=== PATIENT | female | born 1975 | race Caucasian/White ===

== ENCOUNTER 2023-01-02 10:32 | Outpatient (REF) | payer MEDICAID, SELFPAY | END 2023-01-02 10:33 | disposition home or self-care (01) | LOC: HO.SH 10:32 | PROVIDERS: Visit Provider Nurse Practitioner Primary Care | DX: Z01.118 Encounter for examination of ears and hearing with other abnormal findings (principal); H90.3 Sensorineural hearing loss, bilateral | CPT/HCPCS: 92550; 92553; 92588 ==

== ENCOUNTER 2023-01-23 12:58 | Outpatient (REF) | payer MEDICAID, SELFPAY ==
--- NOTE | 2023-01-23 14:38 | MHC.AU.HA1 ---
Hearing Aid Evaluation Date of Visit: 01/23/23 Death Claim Clerk Used: Rebecca Biswas, [id number], Swazi Historical Information: Description of Hearing: Mild steeply sloping to profound sensorineural hearing loss, bilaterally. Summary: Obtaining a case history has been difficult due to inconsistencies in her history (see audio report). However, today Shital reported that speech does not sound clear and she needs to look at the speaker's face in order to utilize lip reading cues for full understanding. Pure-tone thresholds were confirmed today with good reliability. Shital is interested in pursuing hearing aids to help ease some of her communication difficulties. Per her vrmuvn-ad-njl, Rebecca, both Shital's brother and children comment on her hearing abilities and communication troubles. Rebecca believes Shital's unclear speech is related to her hearing loss; however, an exact timeline for her hearing loss and articulation concerns cannot be established. Shital opted for rechargeable tnfrmdxr-gb-sgo-ear hearing aids with custom c-shell ear mold. Hearing Aid Prescription: Based on the individual?s shared listening needs, communication environments, dexterity, desire for connectivity, and personal preferences, the following prescription for amplification has been made: Right ear: Make, Model, Color: Phonak Audeo L70-R Color: Beige Battery Size: Rechargeable Business Coordinator/Slim Tube: 0P Type of Earmold/Dome/CShell/SlimTip: c-shell Left ear: Left ear prescription to be same as Right Hearing Aid above: Make, Model, Color: Phonak Audeo L70-R Color: Beige Battery Size: Rechargeable Business Coordinator/Slim Tube: 0P Type of Earmold/Dome/CShell/SlimTip: c-shell Plan of Care: Patient wishes to purchase hearing aids as prescribed Action Taken/Action Needed: Earmold Impressions Taken without incident (in hold drawer). Medical Clearance to be requested from PCP/ENT. Hearing Instrument Fitting to be scheduled when materials arrive Primary Diagnosis: H90.3 Bilateral Sensorineural Hearing Loss Signature: Provider: Adelso Ho, [facility]
--- NOTE | 2023-01-23 15:16 | MHC.AU.MED ---
Medical Clearance for Hearing Instrumentation Date: 01/23/23 Patient Name: Shital Pena Date of : 1975 Primary Care Provider: Sheyla Mohamud MD We have seen your patient on 01/23/23 and have determined that they are a candidate for amplification (See accompanying report). Specifically, they would benefit from: Hearing aid use in both ears There is a statute that addresses Medical Evaluation Requirements prior to fitting a patient with a hearing aid. According to [place] statute 265 CMR:6.03(1), (a) General. Except as provided in 265 CMR 6.03(1)(b), a hearing aid consultant shall not sell a hearing aid unless the prospective user has presented to the hearing aid consultant a written statement signed by a licensed physician that states that the patient's hearing loss has been medically evaluated and the patient may be considered a candidate for a hearing aid. The medical evaluation must have taken place within the preceding six months. Please note: Due to the [place] Statute referenced above, we cannot accept a signature other than that of a licensed physician. PARTY DEMONSTRATOR and PA signatures cannot be accepted. I am in agreement with the above recommendation. There is no medical contraindication for hearing instrumentation. Physician Signature Date Physician Name (Printed)
--- NOTE | 2023-01-23 15:19 | MHC.AU.MED ---
Medical Clearance for Hearing Instrumentation Date: 01/23/23 Patient Name: Shital Pena Date of : 1975 Primary Care Provider: DIONE Gee We have seen your patient on 01/23/23 and have determined that they are a candidate for amplification (See accompanying report). Specifically, they would benefit from: Hearing aid use in the right ear Hearing aid use in the left ear Hearing aid use in both ears There is a statute that addresses Medical Evaluation Requirements prior to fitting a patient with a hearing aid. According to [place] statute 265 CMR:6.03(1), (a) General. Except as provided in 265 CMR 6.03(1)(b), a hearing screen coordinator shall not sell a hearing aid unless the prospective user has presented to the hearing screen coordinator a written statement signed by a licensed physician that states that the patient's hearing loss has been medically evaluated and the patient may be considered a candidate for a hearing aid. The medical evaluation must have taken place within the preceding six months. Please note: Due to the [place] Statute referenced above, we cannot accept a signature other than that of a licensed physician. INSTRUCTOR MILITARY SCIENCE and PA signatures cannot be accepted. I am in agreement with the above recommendation. There is no medical contraindication for hearing instrumentation. Physician Signature Date Physician Name (Printed)
== END 2023-01-23 12:59 | disposition home or self-care (01) ==
LOC: HO.HAP 12:58
PROVIDERS: Visit Provider Nurse Practitioner Primary Care
DX: H91.91 Unspecified hearing loss, right ear (principal); H90.3 Sensorineural hearing loss, bilateral
CPT/HCPCS: 92552; 92591; V5275

== ENCOUNTER 2023-02-21 15:34 | Outpatient (REF) | payer MEDICAID, SELFPAY ==
--- NOTE | 2023-02-24 11:05 | MHC.AU.HA2 ---
Hearing Instrument Fitting- Adult- Binaural Date of Visit: 02/21/23 Hearing Instruments Dispensed: Right Ear: Jacob, Model, Color, Serial Number: Ruth Smith [id number]-R SN: [id number] Color: Sand Beige Fender Repairer Repair Warranty: 05/13/2026 Fender Repairer Loss and Damage Warranty: 05/13/2026 [facility] Service Plan: 02/22/2024 Battery Size: Rechargeable Banking Specialist/Slim Tube: 0P Earmold/Dome/CShell/SlimTip: c-shell with canal lock SN: [id number] Warranty: 05/14/2023 Type of Wax Guard: CeruShield Left Ear: Jacob, Model, Color, Serial Number: Ruth Smith [id number]-[id number] SN: [id number] Color: Sand Beige Fender Repairer Repair Warranty: 05/13/2026 Fender Repairer Loss and Damage Warranty: 05/13/2026 [facility] Service Plan: 02/22/2024 Battery Size: Rechargeable Banking Specialist/Slim Tube: 0P Earmold/Dome/CShell/SlimTip: c-shell with canal lock SN: [id number] Warranty: 05/14/2023 Type of Wax Guard: CeruShield Disk Accessories/Assistive Technology: Cook Dessert SN: [id number] Summary of Fitting: Performed feedback analyzer and ran real ear measures. Had to decrease significantly from initial fit settings to match real ear targets. After real ear, Shital requested a slight increase in the volume. Turned up both hearing aids slightly. Shital reported that she was hearing better but could not elaborate on the specifics of the sound quality. Rebecca, Shital's ojwyfe-et-pco, will pay attention to how she is hearing and responding over the next few weeks. Discussed care, use, and rechargeability including manually turning on/off, cleaning, and changing wax guards. Practiced insertion and removal. Paired to cellphone but did not pair to [employer] michael at this time. Explained importance of daily, consistent use. Recommendations: A hearing instrument follow-up was scheduled. Diagnosis Code(s): Primary Diagnosis: H90.3 Bilateral Sensorineural Hearing Loss Signature: Provider: Adelso Ho, [facility]
== END 2023-02-21 15:35 | disposition home or self-care (01) ==
LOC: HO.HAP 15:34
PROVIDERS: Visit Provider Nurse Practitioner Primary Care
DX: Z46.1 Encounter for fitting and adjustment of hearing aid (principal); H90.3 Sensorineural hearing loss, bilateral
CPT/HCPCS: V5011; V5020; V5160; V5261; V5264

== ENCOUNTER 2023-03-13 10:46 | Outpatient (REF) | payer MEDICAID, SELFPAY | END 2023-03-13 10:47 | disposition home or self-care (01) | LOC: HO.HAP 10:46 | PROVIDERS: Visit Provider Nurse Practitioner Primary Care | DX: Z13.89 Encounter for screening for other disorder (principal) ==

== ENCOUNTER 2023-03-31 11:10 | Outpatient (REF) | payer MEDICAID, SELFPAY ==
[2023-03-31 13:30] LABS: MANUAL DIFF FLAG NO
[2023-03-31 13:44] LABS: Basophils Percent Auto 0.5 % (0-2); Eosinophils Absolute Auto 0.1 X10*3/uL (0.0-0.4); Eosinophils Percent Auto 1.7 % (0-4); Hematocrit 39.3 % (37.0-47.0); Imm Gran Abs Auto 0.03 X10*3/uL (0.00-0.03); Imm Gran Pct Auto 0.4 % (0.0-0.4); Lymphocytes Absolute Auto 2.8 X10*3/uL (1.2-4.9); Lymphocytes Percent Auto 33.3 % (20-40); Mean Corpuscular HGB Conc 30.5 g/dl (31.0-35.0); Mean Corpuscular Hemoglobin 24.2 pg (27.0-33.0); Mean Corpuscular Volume 79.2 fL (80.0-98.0); Mean Platelet Volume 9.9 fL (9.4-12.3); Monocytes Absolute Auto 0.7 X10*3/uL (0.1-1.2); Monocytes Percent Auto 8.6 % (2-11); Neutrophils Absolute Auto 4.6 x10*3/uL (2.0-8.3); Neutrophils Percent Auto 55.5 % (45-73); Platelet Count 351 X10*3/uL (160-400); Red Blood Count 4.96 X10*6/uL (4.20-5.50); White Blood Count 8.3 X10*3/uL (4.8-10.8)
[2023-03-31 14:03] LABS: Cholesterol 227 mg/dL (<200); HDL Cholesterol 53 mg/dL (>40); LDL Cholesterol Calculated 126 mg/dL (<100); Triglycerides 243 mg/dL (<150)
== END 2023-03-31 11:11 | disposition home or self-care (01) ==
LOC: HO.HHCL 11:10
PROVIDERS: Visit Provider Nurse Practitioner Family
DX: I10 Essential (primary) hypertension (principal); E78.5 Hyperlipidemia, unspecified
CPT/HCPCS: 36415; 80061; 85025

== ENCOUNTER 2023-05-14 09:05 | Outpatient (REF) | payer MEDICAID, SELFPAY ==
--- NOTE | ~2023-05-14 | MM_ITS ---
EXAMINATION: MM SCREENING DIGITAL BREAST TOMOSYNTHESIS, BILATERAL CLINICAL INFORMATION: Asymptomatic patient. Screening. COMPARISON: Mammography: This is a baseline study. TECHNIQUE: Digital breast tomosynthesis is performed in both the craniocaudal and mediolateral oblique views along with computer-aided detection (CAD). Synthesized 2D images are generated from the tomosynthesis. FINDINGS: There are scattered areas of fibroglandular density (ACR BI-RADS breast composition Category b). There are no significant masses, abnormal calcifications, or other abnormalities. There is a coarsely calcifying mass in the upper-outer quadrant of the left breast. This is congressional representative of a benign, involuting fibroadenoma. MM/MM tomosynthesis screening BI IMPRESSION: No mammographic evidence of malignancy. ASSESSMENT: BI-RADS BI-RADS 2 - Benign Findings RECOMMENDATION: Routine annual mammography screening. 1 year F/U This examination should not preclude the clinical evaluation of a suspicious palpable abnormality. This patient's information was entered into a reminder system with a target due date for their next mammogram.
== END 2023-05-14 09:06 | disposition home or self-care (01) ==
LOC: HO.MAMMO 09:05
PROVIDERS: PCP Nurse Practitioner Family; Visit Provider Nurse Practitioner Family
DX: Z12.31 Encounter for screening mammogram for malignant neoplasm of breast (principal)
CPT/HCPCS: 77063; 77067

== ENCOUNTER → 2023-05-14 09:30 | Outpatient (BNV) | payer MEDICAID, SELFPAY | PROVIDERS: PCP Nurse Practitioner Family; Visit Provider Radiology Diagnostic Radiology | DX: Z12.31 Encounter for screening mammogram for malignant neoplasm of breast (principal) | CPT/HCPCS: 77063; 77067 ==

== ENCOUNTER 2023-09-12 09:00 | Outpatient (REF) | payer SELFPAY | END 2023-09-12 09:01 | disposition home or self-care (01) | LOC: HO.HAP 09:00 | PROVIDERS: Visit Provider Nurse Practitioner Family | DX: Z46.1 Encounter for fitting and adjustment of hearing aid (principal); H90.3 Sensorineural hearing loss, bilateral | CPT/HCPCS: V5267 ==

== ENCOUNTER 2023-09-15 10:55 | Outpatient (REF) | payer SELFPAY ==
[2023-09-15 12:58] LABS: HBS Num1 0.17 mIU/mL (0-7.99); ~HepC Num1 0.11 S/CO (0.00-0.79); ~Hepatitis B Surface Antibody NONREACTIVE (Nonreactive); ~Hepatitis C Antibody Nonreactive (Nonreactive)
== END 2023-09-15 10:56 | disposition home or self-care (01) ==
LOC: HO.HHCL 10:55
PROVIDERS: Visit Provider Nurse Practitioner Family
DX: Z00.00 Encounter for general adult medical examination without abnormal findings (principal)
CPT/HCPCS: 36415; 86706; 86803

== ENCOUNTER 2023-10-13 20:00 | Outpatient (REF) | payer MEDICAID, SELFPAY ==
[2023-10-17 22:47] LABS: HPV mRNA E6/E7 rflx Not Detected (Not Detected)
== END 2023-10-13 20:01 | disposition home or self-care (01) ==
LOC: HO.HHCLNP 20:00
PROVIDERS: Visit Provider Advanced Practice Midwife
DX: Z12.4 Encounter for screening for malignant neoplasm of cervix (principal); Z11.51 Encounter for screening for human papillomavirus (HPV)
CPT/HCPCS: 87624; 88142

== ENCOUNTER 2024-04-20 10:32 | Outpatient (REF) | payer MEDICAID, SELFPAY ==
[2024-04-20 12:02] LABS: Alanine Aminotransferase 21 U/L (0-31); Albumin Level 4.5 g/dL (3.5-5.0); Alkaline Phosphatase 129 U/L (39-117); Anion Gap 11 (12-20); Aspartate Amino Transferase 20 U/L (5-31); Bilirubin Total 0.3 mg/dL (0.0-1.0); Blood Urea Nitrogen 14 mg/dL (9-16); Calcium 10.1 mg/dL (8.4-10.2); Carbon Dioxide 31 mmol/L (22-29); Chloride 104 mmol/L (96-108); Cholesterol 188 mg/dL (<200); Estimated Glomerular Filt Rate > 60; Glucose Random 101 mg/dL (60-115); HDL Cholesterol 57 mg/dL (>40); LDL Cholesterol Calculated 106 mg/dL (<100); Potassium 3.1 mmol/L (3.3-5.1); Sodium 143 mmol/L (135-145); Total Protein 8.2 g/dL (6.5-8.0); Triglycerides 128 mg/dL (<150)
== END 2024-04-20 10:33 | disposition home or self-care (01) ==
LOC: HO.HHCL 10:32
PROVIDERS: Visit Provider Registered Nurse
DX: R73.03 Prediabetes (principal)
CPT/HCPCS: 36415; 80053; 80061

== ENCOUNTER 2024-04-28 08:34 | Outpatient (REF) | payer MEDICAID, SELFPAY ==
[2024-04-28 12:01] LABS: Alanine Aminotransferase 17 U/L (0-31); Albumin Level 4.4 g/dL (3.5-5.0); Alkaline Phosphatase 118 U/L (39-117); Anion Gap 10 (12-20); Aspartate Amino Transferase 20 U/L (5-31); Bilirubin Total 0.2 mg/dL (0.0-1.0); Blood Urea Nitrogen 16 mg/dL (9-16); Calcium 10.1 mg/dL (8.4-10.2); Carbon Dioxide 33 mmol/L (22-29); Chloride 101 mmol/L (96-108); Estimated Glomerular Filt Rate > 60; Glucose Random 98 mg/dL (60-115); Potassium 3.2 mmol/L (3.3-5.1); Sodium 141 mmol/L (135-145); Total Protein 8.1 g/dL (6.5-8.0)
[2024-04-28 12:10] LABS: Gamma Glutamyl Transpeptidase 77 U/L (7-33)
== END 2024-04-28 08:35 | disposition home or self-care (01) ==
LOC: HO.HHCL 08:34
PROVIDERS: Visit Provider Registered Nurse
DX: R74.8 Abnormal levels of other serum enzymes (principal); E87.5 Hyperkalemia
CPT/HCPCS: 36415; 80053; 82977

== ENCOUNTER 2024-09-09 13:04 | Outpatient (REF) | payer SELFPAY | END 2024-09-09 13:05 | disposition home or self-care (01) | LOC: HO.HAP 13:04 | PROVIDERS: Visit Provider Nurse Practitioner Family | DX: Z46.1 Encounter for fitting and adjustment of hearing aid (principal); H90.3 Sensorineural hearing loss, bilateral | CPT/HCPCS: V5267 ==

== ENCOUNTER 2024-11-02 12:01 | Outpatient (REF) | payer MEDICAID, SELFPAY ==
[2024-11-02 13:43] LABS: Estimated Average Glucose 128 mg/dL; Hemoglobin A1c % 6.1 % (<6.0)
[2024-11-02 14:04] LABS: Alanine Aminotransferase 26 U/L (0-31); Albumin Level 4.6 g/dL (3.5-5.0); Alkaline Phosphatase 148 U/L (39-117); Anion Gap 13 (12-20); Aspartate Amino Transferase 24 U/L (5-31); Bilirubin Total 0.3 mg/dL (0.0-1.0); Blood Urea Nitrogen 13 mg/dL (9-16); Calcium 10.2 mg/dL (8.4-10.2); Carbon Dioxide 28 mmol/L (22-29); Chloride 105 mmol/L (96-108); Estimated Glomerular Filt Rate > 60; Glucose Random 80 mg/dL (60-115); Potassium 3.7 mmol/L (3.3-5.1); Sodium 142 mmol/L (135-145); Total Protein 8.2 g/dL (6.5-8.0)
== END 2024-11-02 12:02 | disposition home or self-care (01) ==
LOC: HO.HHCL 12:01
PROVIDERS: Visit Provider Registered Nurse
DX: I10 Essential (primary) hypertension (principal); R73.03 Prediabetes
CPT/HCPCS: 36415; 80053; 83036

== ENCOUNTER 2024-12-03 08:34 | Outpatient (REF) | payer MEDICAID, SELFPAY ==
--- OUTSIDE RECORDS SUMMARY | 2024-12-03 08:44 | XMS_ITS | Encounter Summary ---
Author Organization [employer] Address [address] [place] [address] Care Team Providers Care Plc Technician Name Role Phone Astrid Fatoumata [facility] Primary Care Provider [phone] Encounter Details Date Type Department Care Team ([facility] st Contact Info) Description 04/21/2024 Orders Only [facility] [address] [place], [place] [phone] Astrid [facility] [address] [place] [address] Elevated alkaline phosphatase level (Primary Dx); Serum potassium elevated Social History Tobacco Use Types Packs/Day Years Used Date Smoking Tobacco: Never Passive Smoke Exposure: Never Smokeless Tobacco: Never Alcohol Use Standard Drinks/Week Comments Never 0 (1 standard drink = 0.6 oz pur e alcohol) Depression Answer Date Recorded Patient Health Questionnaire-9 Score 0 10/04/2022 Housing Stability Answer Date Recorded What is your housing situation today? I have housing today, but I am worried about losing housing in the future 04/19/[address] you li ve. Do you have problems with any of the following? None of the above 04/19/2024 Food Insecurity Answer Date Recorded Within the past 12 months, y ou worried that your food would run out before you got money to buy more: Never True 04/19/2024 Within the past 12 months,th e food you bought just didn't last and you didn't have enough money to get more: Never True 04/2024 Transportation Answer Date Recorded In the past 12 months, has l ack of transportation kept you from medical appts, meetings, work or from getting things needed for daily living? No 04/19/2024 Utilities Answer Date Recorded In the past 12 months, has t he electric, gas, oil or water company threatened to shut off services in your home? No 04/19/2024 Depression Answer Date Recorded Patient Health Questionnaire-2 Score 4 09/15/2023 Internet Access Answer Date Recorded Internet Access Q1 Yes 04/19/2024 Internet Access Q2 Not on file 04/19/2024 Comments No Sex and Gender Information Value Date Recorded Sex Assigned at Female 06/19/2022 11:56 AM EST Legal Sex Female 11:55 AM EST Gender Identity Female 06/19/2022 11:56 AM EST Sexual Orientation Straight 06/19/2022 11 :59 AM EST documented as of this encounter Plan of Treatment Upcoming Encounters Date Type Department Care Team (Late st Contact Info) Description 12/13/2024 9:00 AM EDT Office Visit [facility] [address] [place] [address] [facility] [address] [place] [address] documented as of this encounter Procedures Procedure Name Priority Date/Time Associated Diagnosis Comments GGT Routine 04/28/2024 8:35 AM EST Elevated alkaline phosphatase level COMPREHENSIVE METABOLIC PANEL Routine 04/28/2024 8:35 AM EST Serum potassium elevated documented in this encounter Results * (ABNORMAL) Gamma Glutamyl Transferase (GGT) (04/28/2024 8:35 AM EST) Gamma Glutamyl Transpeptidase 77(H) 7 - 33 U/L [facility] Blood Venous blood specimen / Unknown 04/28/2024 8:35 AM EST 04/28/2024 11:22 AM EST [facility] LAB BLOOD ORDERABLES Final Re sult [facility] [address] [place] [address] [phone] * (ABNORMAL) Comprehensive Metabolic Panel (04/28/2024 8:35 AM EST) Sodium 141 135 - 145 mmol/L [facility] Potassium 3.2(L) 3.3 - 5.1 mmol/L [facility] Chloride 101 96 - 108 mmol/L [facility] Carbon Dioxide 33(H) 22 - 29 mmol/L [facility] Anion Gap 10(L) 12 - 20 [facility] Urea Nitrogen (BUN) 16 9 - 16 mg/dL [facility] Creatinine, Serum 0.87 0.5 - 1.4 mg/dL [facility] Estimated Glomerular Filt Rate >60 [facility] Comment:Chronic Kidney Disea se: Estimated GFR < 60 mL/min/1.86c8Towqlr Kidney Disease: Estimated GFR < 15 mL/min/1.73m2 Glucose 98 60 - 115 mg/dL [facility] Calcium 10.1 8.4 - 10.2 mg/dL [facility] Bilirubin, Total 0.2 0.0 - 1.0 mg/dL [facility] Aspartate Amino Transferase 20 5 - 31 U/L [facility] Alanine Aminotransferase 17 0 - 31 U/L [facility] Total Protein 8.1(H) 6.5 - 8.0 g/dL [facility] Albumin Level 4.4 3.5 - 5.0 g/dL [facility] Alkaline Phosphatase 118(H) 39 - 117 U/L [facility] Blood Venous blood specimen / Unknown 04/28/2024 8:35 AM EST 04/28/2024 11:22 AM EST [facility] LAB BLOOD ORDERABLES Final Re sult [facility] [address] [place] [phone] documented in this encounter Visit Diagnoses Diagnosis Elevated alkaline phosphatase level- Primary Serum potassium elevated Hyperpotassemia documented in this encounter Additional Health Concerns Assessment Noted Time PHQ-9 Depression Total Score: 0 10/05/19 23 8:58 AM EDT documented as of this encounter Care Teams Plc Technician Relationship Specialty Start Date End Date Fatoumata Resendiz FNP [address] [place] [id number] PCP - General Family Medicine 02/10/24 documented as of this encounter
[2024-12-03 11:20] LABS: MANUAL DIFF FLAG NO
[2024-12-03 11:24] LABS: Appearance Urine Clear; Color Urine Yellow; Glucose Urine UA Negative (Negative); Leukocyte Esterase Urine Trace (Negative); Nitrite Urine Negative (Negative); PH 7.5 (5.0-9.0); Specific Gravity - Urine <= 1.005 (1.005-1.025); UMIC TRIGGER UA YES; Urine Blood Moderate (2+) (Negative); Urine Ketones Negative (Negative); Urine Protein 30 (1+) mg/dL (Neg-Trace)
[2024-12-03 11:27] LABS: Basophils Percent Auto 0.5 % (0-2); Eosinophils Absolute Auto 0.1 X10*3/uL (0.0-0.4); Eosinophils Percent Auto 1.8 % (0-4); Hematocrit 38.5 % (37.0-47.0); Hemoglobin 11.7 g/dl (12.0-16.0); Imm Gran Abs Auto 0.02 X10*3/uL (0.00-0.03); Imm Gran Pct Auto 0.3 % (0.0-0.4); Lymphocytes Absolute Auto 2.8 X10*3/uL (1.2-4.9); Lymphocytes Percent Auto 34.5 % (20-40); Mean Corpuscular HGB Conc 30.4 g/dl (31.0-35.0); Mean Corpuscular Hemoglobin 24.1 pg (27.0-33.0); Mean Corpuscular Volume 79.4 fL (80.0-98.0); Mean Platelet Volume 10.4 fL (9.4-12.3); Monocytes Absolute Auto 0.6 X10*3/uL (0.1-1.2); Neutrophils Absolute Auto 4.5 x10*3/uL (2.0-8.3); Neutrophils Percent Auto 55.9 % (45-73); Platelet Count 319 X10*3/uL (160-400); Red Blood Count 4.85 X10*6/uL (4.20-5.50); Red Cell Distribution Width 17.9 % (11.0-16.0)
[2024-12-03 11:31] LABS: Bacteria Urine Trace (None Seen); Hyaline Casts Urine 0-2 /LPF (0-2); RBC Urine >20 /HPF (0-2)
[2024-12-03 11:52] LABS: Creatinine Urine 40.16 mg/dL; Microalbum/Creatinine Ratio Ur 532.8 ug/mg cr (<30)
[2024-12-03 12:04] LABS: Erythrocyte Sedimentation Rate 44 MM/HR (0-20)
[2024-12-07 22:03] LABS: Prot Elec - Albumin 3.9 g/dL (3.8-4.8); Prot Elec - Alpha1 0.3 g/dL (0.2-0.3); Prot Elec - Beta 1 0.5 g/dL (0.4-0.6); Prot Elec - Beta 2 0.5 g/dL (0.2-0.5); Prot Elec - Gamma 1.1 g/dL (0.8-1.7); Prot Elec - Total Protein 7.3 g/dL (6.1-8.1)
== END 2024-12-03 08:35 | disposition home or self-care (01) ==
LOC: HO.HHCL 08:34
PROVIDERS: PCP Nurse Practitioner Family; Visit Provider Registered Nurse
DX: R77.9 Abnormality of plasma protein, unspecified (principal)
CPT/HCPCS: 36415; 81001; 82043; 82570; 84165; 85025; 85652

== ENCOUNTER 2025-01-10 14:31 | Outpatient (AMB) | payer MEDICAID, SELFPAY ==
--- NOTE | 2025-01-10 14:33 | HO.NEPHOV ---
Vital Signs 01/10/25 14:38 Height 4 ft 9 in Weight 170 lb 8 oz BMI 36.9 BP 131/80 Blood Pressure Location Lt brachial Position Sitting Pulse 79 Pulse Source Pulse Oximeter Pulse Oximetry (%) 99 Oxygen Delivery Method Room Air Intake Visit Reasons: ENP: Persistent Proteinuria/ Conf Paper Stripper Required: No Emulsification Operator: Emulsification Operator Present Accompanied by: Friend Allergies No Known Allergies Allergy (Verified 01/10/25 14:40) Medication List - Last Reconciled 01/10/25 by Jose Miguel Cartwright MD amlodipine 10 mg PO DAILY ferrous gluconate 324 mg PO DAILY metformin 500 mg PO DAILY olmesartan 5 mg PO DAILY simvastatin 20 mg PO DAILY Do you need a note to return to daycare/school/sports/work: No HPI Comments Details: Shital is a 50-year-old woman with history of borderline diabetes mellitus who was found to have non nephrotic range proteinuria and microscopic hematuria by urinalysis. Currently she is on Benicar 5 mg a day. She has been referred for further evaluation of proteinuria. The recent serum electrophoresis did not reveal any monoclonal proteins She was accompanied by caregiver. No history of gross hematuria. No edema. No nausea or vomiting. No urinary symptoms no polyuria polydipsia. No fever no rash. [facility] Medical History Periodontal disease Gingival bleeding Dental calculus Mild depression Iron deficiency Hearing loss in right ear Hyperlipidemia Essential hypertension Surgical History H/O tubal ligation Previous section Family History Mother Cancer Father Alzheimer disease Review of Systems Const Denies anorexia, Denies fever(s) and Denies weakness Eyes Denies blurry vision Card Denies no additional complaints and Denies dyspnea Resp Reports no additional complaints, Reports cough and Denies dyspnea GI Denies melena and Denies diarrhea Denies hematuria Musc Denies tingling Skin/Breast Denies rash Neuro Denies focal weakness, Denies tingling, Denies tremor(s) and Denies weakness Physical Exam Vital Signs: Last Vital Signs Pulse 79 01/10/25 14:38 BP 131/80 01/10/25 14:38 Pulse Ox 99 01/10/25 14:38 Oxygen Delivery Method Room Air 08/04/25 14:38 BMI result Body Mass Index 36.9 Const General: comfortable Nutritional Appearance: well nourished Orientation/consciousness: patient oriented x3 HEENT Head: No normal to inspection Mouth: moist mucous membranes Neck Neck: Yes supple and Yes no JVD Resp Auscultation: clear to auscultation bilaterally, no rales and rub present Cardio Jugular venous distension: no JVD Palpation: no palpable S3 and no palpable S4 Heart sounds: no rubs GI Palpation (GI): Soft to palpation and nontender Percussion: No Fluid wave present General: Yes no CVA tenderness Back/Spine/Pelvis Back: no CVA tenderness Skin General skin exam: no rashes or lesions noted Neuro General: patient oriented x3 Extrem General: Yes no pedal edema and No clubbing Results Reviewed Nephrology Results: Hgb, (12.0-16.0) 11.7 g/dl L 12/03/24 WBC, (4.8-10.8) 8.0 X10*3/uL 12/03/24 Plt Count, (160-400) 319 X10*3/uL 12/03/24 Sodium, (135-145) 142 mmol/L 11/02/24 Potassium, (3.3-5.1) 3.7 mmol/L 11/02/24 Chloride, (96-108) 105 mmol/L 11/02/24 Carbon Dioxide, (22-29) 28 mmol/L 11/02/24 BUN, (9-16) 13 mg/dL 11/02/24 Creatinine, (0.5-1.4) 0.68 mg/dL 11/02/24 Calcium, (8.4-10.2) 10.2 mg/dL 11/02/24 Urine Protein, (Neg-Trace) 30 (1+) mg/dL H 12/03/24 Urine Creatinine 40.16 mg/dL 12/03/24 Assessment & Plan Assessment & Plan (1) Hematuria: Code(s): R31.9 - Hematuria, unspecified Category: Medical (2) Proteinuria: Code(s): R80.9 - Proteinuria, unspecified Category: Medical Plan 50-year-old woman with obesity hypertension and borderline diabetes mellitus with proteinuria and microscopic hematuria. Workup initiated for serum. Complete serological workup. Obtain ANCAs and anti GBM. Check serum immunofixation Recheck urinalysis. Check CT scan abdominal pelvis to screen for renal and extrarenal causes of microhematuria. Further workup will be based on the outcome of the above investigations. In the meantime continue with Benicar for renal protection Maintain blood pressure less than 130/80. Continue to avoid nephrotoxic toxic agents including NSAIDs. She will benefit from weight loss. Stay on low-sodium diet and increase p.o. fluid intake. She returned to the office in the next few weeks. Orders: Orders Total Protein Urine Random Today R31.9 - Hematuria, unspecified, R80.9 - Proteinuria, unspecified Immunofixation Pnl, Serum Today R31.9 - Hematuria, unspecified, R80.9 - Proteinuria, unspecified Neutrophil Cytoplasma Ab Today R31.9 - Hematuria, unspecified, R80.9 - Proteinuria, unspecified CT abdomen pelvis w IV con Today R31.9 - Hematuria, unspecified Comprehensive Met. Panel Today R31.9 - Hematuria, unspecified, R80.9 - Proteinuria, unspecified Complete Blood Count Auto Diff Today R31.9 - Hematuria, unspecified, R80.9 - Proteinuria, unspecified Creatinine Urine Today R31.9 - Hematuria, unspecified, R80.9 - Proteinuria, unspecified UA and rflx microscopic Today R31.9 - Hematuria, unspecified, R80.9 - Proteinuria, unspecified Anti Glomerular Basement Memb Today R31.9 - Hematuria, unspecified, R80.9 - Proteinuria, unspecified Coding Level of Care Code New Pt Level 4 (25545) Diagnoses Hematuria R31.9 Proteinuria R80.9
--- OUTSIDE RECORDS SUMMARY | 2025-01-10 14:34 | XMS_ITS | Encounter Summary ---
Author Organization [employer] Address [address] [place] [address] Care Team Providers Care Clinical Case Manager Name Role Phone Astrid Fatoumata [facility] Primary Care Provider [phone] Encounter Details Date Type Department Care Team ([facility] st Contact Info) Description 04/21/2024 Orders Only [facility] [address] [place], [place] [phone] Astrid [facility] [address] [place] [address] Elevated alkaline phosphatase level (Primary Dx); Serum [...] Care Team (Late st Contact Info) Description 01/13/2025 10:00 AM EDT Clinical Support [address] [address] documented as of this encounter Procedures Procedure Name Priority Date/Time Associated Diagnosis Comments GGT Routine 04/28/2024 8:35 AM EST Elevated alkaline phosphatase level COMPREHENSIVE METABOLIC PANEL Routine 04/28/2024 8:35 AM EST Serum potassium elevated documented in this encounter Results * (ABNORMAL) Gamma Glutamyl Transferase (GGT) (04/28/2024 8:35 AM EST) Gamma Glutamyl Transpeptidase 77(H) 7 - 33 U/L [facility] Blood Venous blood specimen / Unknown 04/28/2024 8:35 AM EST 04/28/2024 11:22 AM EST [facility] LAB BLOOD ORDERABLES Final Re sult [facility] [address] [place] [phone] * (ABNORMAL) Comprehensive Metabolic Panel (04/28/2024 8:35 AM EST) Sodium 141 135 - 145 mmol/L [facility] Potassium 3.2(L) 3.3 - 5.1 mmol/L [facility] Chloride 101 96 - 108 mmol/L [facility] Carbon Dioxide 33(H) 22 - 29 mmol/L [facility] Anion Gap 10(L) 12 - 20 [facility] Urea Nitrogen (BUN) 16 9 - 16 mg/dL [facility] Creatinine, Serum 0.87 0.5 - 1.4 mg/dL [facility] Estimated Glomerular Filt Rate >60 [facility] Comment:Chronic Kidney Disea se: Estimated GFR < 60 mL/min/1.04z5Upinmv Kidney Disease: Estimated GFR < 15 mL/min/1.73m2 Glucose 98 60 - 115 mg/dL [facility] Calcium 10.1 8.4 - 10.2 mg/dL [facility] Bilirubin, Total 0.2 0.0 - 1.0 mg/dL [facility] Aspartate Amino Transferase 20 5 - 31 U/L [facility] Alanine Aminotransferase 17 0 - 31 U/L [facility] Total Protein 8.1(H) 6.5 - 8.0 g/dL [facility] Albumin Level 4.4 3.5 - 5.0 g/dL [facility] Alkaline Phosphatase 118(H) 39 - 117 U/L [facility] Blood Venous blood specimen / Unknown 04/28/2024 8:35 AM EST 04/28/2024 11:22 AM EST [facility] LAB BLOOD ORDERABLES Final Re sult [facility] [address] [place] [address] [phone] documented in this encounter Visit Diagnoses Diagnosis Elevated alkaline phosphatase level- Primary Serum potassium elevated Hyperpotassemia documented in this encounter Additional Health Concerns Assessment Noted Time PHQ-9 Depression Total Score: 0 10/05/19 8:58 AM EDT documented as of this encounter Care Teams Clinical Case Manager Relationship Specialty Start Date End Date PetersburgFatoumata ramirez FNP [address] [place] [address] PCP - General Family Medicine 02/10/24 documented as of this encounter
[2025-01-10 14:38] VITALS: BP 131/80; PULSE 79; O2SAT 99; BMI 36.9
== END 2025-01-10 14:53 | disposition home or self-care (01) ==
LOC: HO.HKA 14:32
PROVIDERS: PCP Nurse Practitioner Family; Visit Provider Internal Medicine Hypertension Specialist
DX: R31.9 Hematuria, unspecified (principal); R80.9 Proteinuria, unspecified
CPT/HCPCS: 99204

== ENCOUNTER → 2025-01-10 14:31 | Outpatient (BNVA) | payer MEDICAID, SELFPAY | PROVIDERS: PCP Nurse Practitioner Family; Visit Provider Internal Medicine Hypertension Specialist | DX: R73.03 Prediabetes (principal); R80.9 Proteinuria, unspecified; R31.9 Hematuria, unspecified | CPT/HCPCS: 99202 ==

== ENCOUNTER 2025-01-21 11:49 | Outpatient (REF) | payer MEDICAID, SELFPAY ==
--- NOTE | ~2025-01-21 | US_ITS ---
CLINICAL HISTORY: 49 y.o F with persistent alkphos elevation. R p hepatobiliary dysfunction US abdomen complete with duplex and color Doppler Comparison: None Findings: The visualized pancreas, aorta, and inferior vena cava are unremarkable. Liver normal size and mildly echogenic throughout. Right lobe 14.2 cm length. No focal hepatic masses. Common duct 3.0 mm diameter. Physiologic distention of the gallbladder. No gallstones. Probable gallbladder sludge. No gallbladder wall thickening. No pericholecystic fluid. No sonographic Marie sign. Main portal vein antegrade. Right kidney normal size, 10.7 cm in length. Normal cortical width and echotexture. No solid or cystic renal masses. Nonobstructing caliceal stones midpole measuring 14 and 13 mm. No hydronephrosis. Left kidney normal, 10.0 cm in length. Normal cortical width and echotexture. No solid or cystic renal masses. Spleen measures 6.4 cm. No splenic masses. No ascites. No lymphadenopathy. Impression: 1. Echogenic liver reflecting mild diffuse hepatic steatosis or diffuse hepatocellular disease. No focal hepatic lesions. 2. Probable gallbladder sludge no gallstones or evidence of cholelithiasis. 3. Nephrolithiasis on the right without evidence of obstructive uropathy. Correlate with CT of the abdomen and pelvis. This document has been electronically signed by: Flaquito Abdi MD on 01/22/2025 09:06:12
--- OUTSIDE RECORDS SUMMARY | 2025-01-21 11:51 | XMS_ITS | Encounter Summary ---
Author Organization [employer] Address [address] [facility] [address] [place] [address] Care Team Providers Care Wildland Firefighter Name Role Phone Astrid Fatoumata [facility] Primary Care Provider [phone] Encounter Details Date Type Department Care Team ([facility] st Contact Info) Description 04/21/2024 Orders Only [facility] [address], [place] [phone] Astrid [facility] [address] [place] [address] Elevated alkaline phosphatase level (Primary Dx); Serum [...] as of this encounter Plan of Treatment Not on file documented as of this encounter Procedures Procedure Name Priority Date/Time Associated Diagnosis Comments GGT Routine 04/28/2024 8:35 AM EST Elevated alkaline phosphatase level COMPREHENSIVE METABOLIC PANEL Routine 04/28/2024 8:35 AM EST Serum potassium elevated documented in this encounter Results * (ABNORMAL) Gamma Glutamyl Transferase (GGT) (04/28/2024 8:35 AM EST) Gamma Glutamyl Transpeptidase 77(H) 7 - 33 U/L [facility] Blood Venous blood specimen / Unknown 04/28/2024 8:35 AM EST 04/28/2024 11:22 AM EST [facility] LAB BLOOD ORDERABLES Final Re sult [facility] [address] [place] [address] [phone] * (ABNORMAL) Comprehensive Metabolic Panel (04/28/2024 8:35 AM EST) Sodium 141 135 - 145 mmol/L [facility] Potassium 3.2(L) 3.3 - 5.1 mmol/L [facility] Chloride 101 96 - 108 mmol/L [facility] Carbon Dioxide 33(H) 22 - 29 mmol/L [facility] Anion Gap 10(L) 12 - 20 [facility] Urea Nitrogen (BUN) 16 9 - 16 mg/dL [facility] Creatinine, Serum 0.87 0.5 - 1.4 mg/dL [facility] Estimated Glomerular Filt Rate >60 [facility] Comment:Chronic Kidney Disea se: Estimated GFR < 60 mL/min/[id number] Kidney Disease: Estimated GFR < 15 mL/min/1.73m2 Glucose 98 60 - 115 mg/dL [facility] Calcium 10.1 8.4 - 10.2 mg/dL [facility] Bilirubin, Total 0.2 0.0 - 1.0 mg/dL [facility] Aspartate Amino Transferase 20 5 - 31 U/L [facility] Alanine Aminotransferase 17 0 - 31 U/L [facility] Total Protein 8.1(H) 6.5 - 8.0 g/dL [facility] Albumin Level 4.4 3.5 - 5.0 g/dL [facility] Alkaline Phosphatase 118(H) 39 - 117 U/L [facility] Blood Venous blood specimen / Unknown 04/28/2024 8:35 AM EST 04/28/2024 11:22 AM EST [facility] LAB BLOOD ORDERABLES Final Re sult [facility] [address] [place] [phone] documented in this encounter Visit Diagnoses Diagnosis Elevated alkaline phosphatase level- Primary Serum potassium elevated Hyperpotassemia documented in this encounter Additional Health Concerns Assessment Noted Time PHQ-9 Depression Total Score: 0 10/05/19 23 8:58 AM EDT documented as of this encounter Care Teams Wildland Firefighter Relationship Specialty Start Date End Date Fatoumata Resendiz FNP [address] [place] [address] PCP - General Family Medicine 02/10/24 documented as of this encounter
== END 2025-01-21 11:50 | disposition home or self-care (01) ==
LOC: HO.US 11:49
PROVIDERS: PCP Nurse Practitioner Family; Visit Provider Registered Nurse
DX: R74.8 Abnormal levels of other serum enzymes (principal); R31.9 Hematuria, unspecified
CPT/HCPCS: 76700

== ENCOUNTER → 2025-01-21 11:51 | Outpatient (BNV) | payer MEDICAID, SELFPAY | PROVIDERS: PCP Nurse Practitioner Family; Visit Provider Radiology Diagnostic Radiology | DX: R74.8 Abnormal levels of other serum enzymes (principal); N20.0 Calculus of kidney | CPT/HCPCS: 76700 ==

== ENCOUNTER 2025-02-24 09:57 | Outpatient (AMB) | payer MEDICAID, SELFPAY ==
[2025-02-24 10:01] VITALS: BP 132/78; PULSE 80; O2SAT 97; BMI 37.2
--- NOTE | 2025-02-24 10:01 | HO.NEPHOV_ITS ---
Vital Signs 02/24/25 10:01 Height 4 ft 9 in Weight 172 lb BMI 37.2 BP 132/78 Blood Pressure Location Lt brachial Position Sitting Pulse 80 Pulse Source Pulse Oximeter Pulse Oximetry (%) 97 Oxygen Delivery Method Room Air Intake Visit Reasons: FU Alcohol Law Enforcement Agent Required: No Alcohol Law Enforcement Agent Services: Alcohol Law Enforcement Agent Offered & Declined (Sister in law will translate ) Accompanied by: sister adiel Allergies No Known Allergies Allergy (Verified 02/24/25 10:03) Medication List - Last Reconciled 02/24/25 by Jose Miguel Cartwright MD amlodipine 10 mg PO DAILY ferrous gluconate 324 mg PO DAILY metformin 500 mg PO DAILY olmesartan 5 mg PO DAILY simvastatin 20 mg PO DAILY HPI Comments Details: Shital is a 50-year-old woman with history of borderline diabetes mellitus who was found to have non nephrotic range proteinuria and microscopic hematuria by urinalysis. Currently she is on Benicar 5 mg a day. She has been referred for further evaluation of proteinuria. The recent serum electrophoresis did not reveal any monoclonal proteins She was accompanied by caregiver. No history of gross hematuria. No edema. No nausea or vomiting. No urinary symptoms no polyuria polydipsia. No fever no rash. 02/24/25 The patient is a 50-year-old female presenting with a follow-up on proteinuria. Proteinuria is associated with pre diabetes,HTN and Obesity ; renal function is stable. No swelling is present, h/o micro Hematuria is noted, work up in progress Social History: - High sugar intake, including candy and sweets - Drinks a lot of juice and soda, limited water intake Diagnostic Results: - Imaging: Normal kidneys, no obstruction noted [facility] Medical History Periodontal disease Gingival bleeding Dental calculus Mild depression Iron deficiency Hearing loss in right ear Hyperlipidemia Essential hypertension Surgical History H/O tubal ligation Previous section Family History Mother Cancer Father Alzheimer disease Physical Exam Vital Signs: Last Vital Signs Pulse 80 02/24/25 10:01 BP 132/78 02/24/25 10:01 Pulse Ox 97 02/24/25 10:01 Oxygen Delivery Method Room Air 02/24/25 10:01 BMI result Body Mass Index 37.2 Comfortable Neck supple no JVD. Lungs entry equal no rales. Heart S1-S2 heard no gallop or rub. Abdomen soft nontender. Neuro alert awake oriented. No asterixis. Extremities no edema. Results Reviewed Nephrology Results: Hgb, (12.0-16.0) 11.7 g/dl L 12/03/24 WBC, (4.8-10.8) 8.0 X10*3/uL 12/03/24 Plt Count, (160-400) 319 X10*3/uL 12/03/24 Sodium, (135-145) 142 mmol/L 11/02/24 Potassium, (3.3-5.1) 3.7 mmol/L 11/02/24 Chloride, (96-108) 105 mmol/L 11/02/24 Carbon Dioxide, (22-29) 28 mmol/L 11/02/24 BUN, (9-16) 13 mg/dL 11/02/24 Creatinine, (0.5-1.4) 0.68 mg/dL 11/02/24 Calcium, (8.4-10.2) 10.2 mg/dL 11/02/24 Urine Protein, (Neg-Trace) 30 (1+) mg/dL H 12/03/24 Urine Creatinine 40.16 mg/dL 12/03/24 Assessment & Plan Assessment & Plan (1) Hematuria: Code(s): R31.9 - Hematuria, unspecified Category: Medical (2) Proteinuria: Code(s): R80.9 - Proteinuria, unspecified Category: Medical Plan 50-year-old woman with obesity hypertension and borderline diabetes mellitus with proteinuria and microscopic hematuria. Complete serological workup in progress . Reordered ANCAs and anti GBM. Check CT scan abdominal pelvis to screen for renal and extrarenal causes of microhematuria. ( ordered- not done yet) USG showed non obstructing nephrolithiasis Further workup will be based on the outcome of the above investigations. In the meantime continue with Benicar for renal protection Maintain blood pressure less than 130/80. Continue to avoid nephrotoxic toxic agents including NSAIDs. She will benefit from weight loss. Stay on low-sodium diet and increase p.o. fluid intake. . Orders: Orders VICTORINO Reflex Titer and Pattern Today R31.9 - Hematuria, unspecified, R80.9 - Proteinuria, unspecified Anti Glomerular Basement Memb Today R31.9 - Hematuria, unspecified, R80.9 - Proteinuria, unspecified Complement C3 Today R31.9 - Hematuria, unspecified, R80.9 - Proteinuria, un specified Complement C4 Today R31.9 - Hematuria, unspecified, R80.9 - Proteinuria, unspecified Creatinine Urine Today R31.9 - Hematuria, unspecified, R80.9 - Proteinuria, unspecified Total Protein Urine Random Today R31.9 - Hematuria, unspecified, R80.9 - Proteinuria, unspecified UA and rflx microscopic Today R31.9 - Hematuria, unspecified, R80.9 - Proteinuria, unspecified Neutrophil Cytoplasma Ab Today R31.9 - Hematuria, unspecified, R80.9 - Proteinuria, unspecified Proteinase 3 PR3 Antibodies Today R31.9 - Hematuria, unspecified, R80.9 - Proteinuria, unspecified Basic Metabolic Panel Today R31.9 - Hematuria, unspecified, R80.9 - Proteinuria, unspecified Hemoglobin A1c Today R31.9 - Hematuria, unspecified, R80.9 - Proteinuria, unspecified Coding Level of Care Code Est Pt Level 4 (64750) Diagnoses Hematuria R31.9 Proteinuria R80.9
== END 2025-02-24 10:18 | disposition home or self-care (01) ==
LOC: HO.HKA 09:58
PROVIDERS: PCP Nurse Practitioner Family; Visit Provider Internal Medicine Hypertension Specialist
DX: R31.9 Hematuria, unspecified (principal); R80.9 Proteinuria, unspecified
CPT/HCPCS: 99214

== ENCOUNTER 2025-02-24 09:57 | Outpatient (REF) | payer MEDICAID, SELFPAY ==
[2025-02-24 11:00] LABS: Hematocrit 39.7 % (37.0-47.0); Hemoglobin 12.0 g/dl (12.0-16.0); Imm Gran Abs Auto 0.02 X10*3/uL (0.00-0.03); Imm Gran Pct Auto 0.2 % (0.0-0.4); Lymphocytes Absolute Auto 2.9 X10*3/uL (1.2-4.9); MANUAL DIFF FLAG SCAN; Mean Corpuscular HGB Conc 30.2 g/dl (31.0-35.0); Mean Corpuscular Hemoglobin 24.0 pg (27.0-33.0); Mean Corpuscular Volume 79.2 fL (80.0-98.0); NRBC Abs Auto 0.000 X10*3/uL (0.0-0.012); NRBC Pct Auto 0.0 /100WBC (0.0-0.2); PLT CLUMP 1; Red Blood Count 5.01 X10*6/uL (4.20-5.50); SCAN SMEAR FLAG 1
[2025-02-24 11:14] LABS: Total Hemoglobin (HGBA1C) 3176.7550 umol/L
[2025-02-24 11:18] LABS: Platelet Count 290 X10*3/uL (160-400); White Blood Count 8.4 X10*3/uL (4.8-10.8)
[2025-02-24 11:36] LABS: Appearance Urine Clear; Glucose Urine UA Negative (Negative); PH 8.5 (5.0-9.0); Specific Gravity - Urine 1.010 (1.005-1.025); UMIC TRIGGER UA YES
[2025-02-24 11:47] LABS: Alanine Aminotransferase 17 U/L (0-31); Albumin Level 4.7 g/dL (3.5-5.0); Alkaline Phosphatase 127 U/L (39-117); Anion Gap 15 (12-20); Aspartate Amino Transferase 22 U/L (5-31); Blood Urea Nitrogen 9 mg/dL (9-16); Calcium 10.3 mg/dL (8.4-10.2); Carbon Dioxide 28 mmol/L (22-29); Chloride 106 mmol/L (96-108); Estimated Glomerular Filt Rate > 60; Potassium 3.7 mmol/L (3.3-5.1); Sodium 145 mmol/L (135-145); Total Protein 8.4 g/dL (6.5-8.0)
[2025-02-24 12:19] LABS: Total Protein Urine Random 42 mg/dL (<12)
--- OUTSIDE RECORDS SUMMARY | 2025-02-24 12:23 | XMS_ITS | Encounter Summary ---
Author Organization [employer] Address [address] [facility] [address] [place] [address] Care Team Providers Care Cyber Incident Responder Name Role Phone Astrid Fatoumata [facility] Primary Care Provider [phone] Encounter Details Date Type Department Care Team ([facility] st Contact Info) Description 04/21/2024 Orders Only [facility] [address] [place], [place] [phone] Gile [facility] [address] [place] [address] Elevated alkaline phosphatase level (Primary Dx); Serum [...] Care Team (Late st Contact Info) Description 03/21/2025 11:00 AM EDT Office Visit [facility] [address] [place] [address] Shaun Morelandaris [address] [place] [address] 03/28/2025 11:00 AM EDT Office Visit [facility] [address] [place] [address] Veronica Moreland [address] [place] [address] documented as of this encounter Procedures Procedure Name Priority Date/Time Associated Diagnosis Comments SLIDE REVIEW Routine 02/24/2025 10:44 AM EDT Elevated alkaline phosphatase level CBC WITH AUTO DIFFERENTIAL Routine 02/24/2025 10:44 AM EDT Elevated alkaline phosphatase level HEMOGLOBIN A1C Routine 02/24/2025 10:44 AM EDT Elevated alkaline phosphatase level COMPREHENSIVE METABOLIC PANEL Routine 02/24/2025 10:44 AM EDT Elevated alkaline phosphatase level URINALYSIS, COMPLETE Routine 02/24/2025 10:32 AM EDT Elevated alkaline phosphatase level GGT Routine 04/28/2024 8:35 AM EST Elevated alkaline phosphatase level COMPREHENSIVE METABOLIC PANEL Routine 04/28/2024 8:35 AM EST Serum potassium elevated documented in this encounter Results * (ABNORMAL) Comprehensive Metabolic Panel (02/24/2025 10:44 AM EDT) Sodium 145 135 - 145 mmol/L [facility] Potassium 3.7 3.3 - 5.1 mmol/L [facility] Chloride 106 96 - 108 mmol/L [facility] Carbon Dioxide 28 22 - 29 mmol/L [facility] Anion Gap 15 12 - 20 [facility] Urea Nitrogen (BUN) 9 9 - 16 mg/dL [facility] Creatinine, Serum 0.74 0.5 - 1.4 mg/dL [facility] Estimated Glomerular Filt Rate >60 [facility] Comment:Chronic Kidney Disea se: Estimated GFR < 60 mL/min/[id number] Kidney Disease: Estimated GFR < 15 mL/min/1.73m2 Glucose 85 60 - 115 mg/dL [facility] Calcium 10.3(H) 8.4 - 10.2 mg/dL [facility] Bilirubin, Total 0.2 0.0 - 1.0 mg/dL [facility] Aspartate Amino Transferase 22 5 - 31 U/L [facility] Alanine Aminotransferase 17 0 - 31 U/L [facility] Total Protein 8.4(H) 6.5 - 8.0 g/dL [facility] Albumin Level 4.7 3.5 - 5.0 g/dL [facility] Alkaline Phosphatase 127(H) 39 - 117 U/L [facility] 02/24/2025 10:4 4 AM EDT 02/24/2025 10:44 AM EDT us Generic External Data Provider LAB BLOOD ORDERAB LES Final Result [facility] [address] [place] [address] [phone] * Slide Review (02/24/2025 10:44 AM EDT) Slide Review VERIFIED [facility] 02/24/2025 10:4 4 AM EDT 02/24/2025 10:44 AM EDT us Generic External Data Provider LAB BLOOD ORDERAB LES Final Result [facility] [address] [place] [phone] * (ABNORMAL) CBC auto differential (02/24/2025 10:44 AM EDT) White Blood Count 8.4 4.8 - 10.8 X10*3/uL [facility] Red Blood Count 5.01 4.20 - 5.50 X10*6/uL [facility] Hemoglobin 12.0 12.0 - 16.0 g/dl [facility] Hematocrit 39.7 37.0 - 47.0 % [facility] Mean Corpuscular Volume 79.2(L) 80.0 - 98.0 fL [facility] Mean Corpuscular Hemoglobin 24.0(L) 27.0 - 33.0 pg [facility] Mean Corpuscular HGB Conc 30.2(L) 31.0 - 35.0 g/dl [facility] Red Cell Distribution Width 16.0 11.0 - 16.0 % [facility] Platelet Count 290 160 - 400 X10*3/uL [facility] Mean Platelet Volume 10.4 9.4 - 12.3 fL [facility] Neutrophils Percent Auto 54.3 45 - 73 % [facility] Imm Gran Pct Auto 0.2 0.0 - 0.4 % [facility] Lymphocytes Percent Auto 35.2 20 - 40 % [facility] Monocytes Percent Auto 8.1 2 - 11 % [facility] Eosinophils Percent Auto 1.7 0 - 4 % [facility] Basophils Percent Auto 0.5 0 - 2 % [facility] NRBC Pct Auto 0.0 0.0 - 0.2 /100WBC [facility] Neutrophils Absolute Auto 4.5 2.0 - 8.3 x10*3/uL [facility] Imm Gran Abs Auto 0.02 0.00 - 0.03 X10*3/uL [facility] Lymphocytes Absolute Auto 2.9 1.2 - 4.9 X10*3/uL [facility] Monocytes Absolute Auto 0.7 0.1 - 1.2 X10*3/uL [facility] Eosinophils Absolute Auto 0.1 0.0 - 0.4 X10*3/uL [facility] Basophils Absolute Auto 0.0 0.0 - 0.2 X10*3/uL [facility] NRBC Abs Auto 0.000 0.0 - 0.012 X10*3/uL [facility] 02/24/2025 10:4 4 AM EDT 02/24/2025 10:44 AM EDT us Generic External Data Provider LAB BLOOD ORDERAB LES Edited Result - Final [facility] [address] [place] [phone] * (ABNORMAL) Hemoglobin A1c (02/24/2025 10:44 AM EDT) Hemoglobin A1c 6.4(H) <6.0 % [facility] Comment:Hemoglobin A1C Refer ence Range Adults: 4.8 - 6.0 % Non diabetic: < 6.0 % Goal: < 7.0 %Additional Action Suggested: > 8.0 %Note: Hemoglobin A1c results are invalid for patients with abnormal amounts of HbF. Blood transfusions may impact the HbA1c concentration in the patient sample. Estimated Average Glucose 137 mg/dL [facility] Comment:eAG = Estimated ave rage glucose which is %A1C expressed asaverage glucose, using the formula of the I0P-HqtbbxcAxvhgfn Glucose study (ADAG), Diabetes Care, Vol.31,#8,Jan. 2007 02/24/2025 10:4 4 AM EDT 02/24/2025 10:44 AM EDT us Generic External Data Provider LAB BLOOD ORDERAB LES Final Result Performing Organization Address [facility] Co de Phone Number [facility] [address] [place] [address] [phone] * (ABNORMAL) Urinalysis Complete (02/24/2025 10:32 AM EDT) Color Urine Yellow [facility] Appearance Urine Clear [facility] PH 8.5 5.0 - 9.0 [facility] Glucose Urine UA Negative Negative mg/dL [facility] Urine Blood Trace(A) Negative [facility] Specific [place] - Urine 1.010 1.005 - 1.025 [facility] Urine Protein 30 (1+)(A) Neg-Trace mg/dL [facility] Urine Ketones Negative Negative mg/dL [facility] Nitrite Urine Negative Negative [facility] Leukocyte Esterase Urine Negative Negative [facility] RBC Urine 6-10(A) 0 - 2 /HPF [facility] Urine WBC 0-5 0 - 5 /HPF [facility] Urine Squamous Epithelial Cell 3-5 0 - 2 /HPF [facility] Urine Bacteria 1+ None Seen [facility] Hyaline Casts, Urine 0-2 0 - 2 /LPF [facility] 02/24/2025 10:3 2 AM EDT 02/24/2025 11:06 AM EDT us Generic External Data Provider LAB URINE ORDERAB LES Final Result Performing Organization Address [facility]/ZIP Co de Phone Number [facility] [address] [place] [address] [phone] * (ABNORMAL) Gamma Glutamyl Transferase (GGT) (04/28/2024 8:35 AM EST) Gamma Glutamyl Transpeptidase 77(H) 7 - 33 U/L [facility] Blood Venous blood specimen / Unknown 04/28/2024 8:35 AM EST 04/28/2024 11:22 AM EST [facility] LAB BLOOD ORDERABLES Final Re sult [facility] [address] [place] [phone] * (ABNORMAL) Comprehensive Metabolic Panel (04/28/2024 8:35 AM EST) Sodium 141 135 - 145 mmol/L [facility] Potassium 3.2(L) 3.3 - 5.1 mmol/L [facility] Chloride 101 96 - 108 mmol/L [facility] Carbon Dioxide 33(H) 22 - 29 mmol/L [facility] Anion Gap 10(L) 12 - 20 [facility] Urea Nitrogen (BUN) 16 9 - 16 mg/dL [facility] Creatinine, Serum 0.87 0.5 - 1.4 mg/dL [facility] Estimated Glomerular Filt Rate >60 [facility] Comment:Chronic Kidney Disea se: Estimated GFR < 60 mL/min/[id number] Kidney Disease: Estimated GFR < 15 mL/min/1.73m2 Glucose 98 60 - 115 mg/dL [facility] Calcium 10.1 8.4 - 10.2 mg/dL [facility] Bilirubin, Total 0.2 0.0 - 1.0 mg/dL [facility] Aspartate Amino Transferase 20 5 - 31 U/L [facility] Alanine Aminotransferase 17 0 - 31 U/L [facility] Total Protein 8.1(H) 6.5 - 8.0 g/dL [facility] Albumin Level 4.4 3.5 - 5.0 g/dL [facility] Alkaline Phosphatase 118(H) 39 - 117 U/L [facility] Blood Venous blood specimen / Unknown 04/28/2024 8:35 AM EST 04/28/2024 11:22 AM EST [facility] LAB BLOOD ORDERABLES Final Re sult [facility] [address] [place] [address] [phone] documented in this encounter Visit Diagnoses Diagnosis Elevated alkaline phosphatase level- Primary Serum potassium elevated Hyperpotassemia documented in this encounter Additional Health Concerns Assessment Noted Time PHQ-9 Depression Total Score: 0 10/05/19 23 8:58 AM EDT documented as of this encounter Care Teams Cyber Incident Responder Relationship Specialty Start Date End Date GileFatoumata FNP [address] [place] [phone] PCP - General Family Medicine 02/10/24 documented as of this encounter
--- OUTSIDE RECORDS SUMMARY | 2025-02-24 12:23 | XMS_ITS | Encounter Summary ---
Author Organization [employer] Address [address] [place] [address] 7 [place] [address] Care Team Providers Care Crossing Gateman Name Role Phone Nikia Arzate Primary Care Provider [phone] Fatoumata Resendiz [facility] Primary Care Provider [phone] Encounter Details Date Type Department Care Team (Late Contact Info) Description 2023 Orders Only [facility] [address] [place] [address] Nikia Arzate FNP [address] [place] [address] Essential hypertension (Primary Dx) Social History Tobacco Use Types Packs/Day Years Used Date Smoking Tobacco: Never Passive Smoke Exposure: Never Smokeless Tobacco: Never Alcohol Use Standard Drinks/Week Comments Never 0 (1 standard drink = 0.6 oz pur e alcohol) Depression Answer Date Recorded Patient Health Questionnaire-9 Score 0 10/04/2022 Depression Answer Date Recorded Patient Health Questionnaire-2 Score 0 10/04/2022 Comments Unknown Sex and Gender Information Value Date Recorded Sex Assigned at Female 06/19/2022 11:56 AM EST Legal Sex Female 11:55 AM EST Gender Identity Female 06/19/2022 11:56 AM EST Sexual Orientation Straight 06/19/2022 11 :59 AM EST documented as of this encounter Plan of Treatment Upcoming Encounters Date Type Department Care Team (Late Contact Info) Description 03/21/2025 11:00 AM EDT Office Visit [facility] AD[facility] [address] [place] [address] Veronica Moreland [address] [place] [address] 03/28/2025 11:00 AM EDT Office Visit [facility] [address] [place], [place] [phone] Veronica Moreland [address] [place] [address] documented as of this encounter Visit Diagnoses Diagnosis Essential hypertension- Primary Unspecified essential hypertension documented in this encounter Additional Health Concerns Assessment Noted Time PHQ-9 Depression Total Score: 0 10/05/19 8:58 AM EDT documented as of this encounter Care Teams Crossing Gateman Relationship Specialty Start Date End Date Nikia Arzate FNP [address] [place] [address] PCP - General Family Medicine 10/08/22 02/09/24 AstridFatoumata ramirez FNP [address] [place] [address] PCP - General Family Medicine 02/10/24 documented as of this encounter
--- OUTSIDE RECORDS SUMMARY | 2025-02-24 12:23 | XMS_ITS | Encounter Summary ---
Author Organization [employer] Address [address] [place] [address] [address] [place] [address] Care Team Providers Care Ultra Sound Technician Name Role Phone Nikia Arzate Primary Care Provider [phone] AstridFatoumata [facility] Primary Care Provider Encounter Details Date Type Department Care Team ([facility] st Contact Info) Description 10/08/2022 Orders Only [facility] [address] [place] [address] Nikia Arzate FNP [address] [place] [address] Low mean corpuscular volume (MCV) (Primary Dx) Social History Tobacco Use Types [...] Orientation Straight 06/19/2022 11 :59 AM EST COVID-19 Exposure Response Date Recorded In the last 10 days, have yo u been in contact with someone who was confirmed or suspected to have Coronavirus/COVID-19? No / Unsure 10/04/2022 8:31 AM EDT documented as of this encounter Plan of Treatment Upcoming Encounters Date Type Department Care Team (Late st Contact Info) Description 03/21/2025 11:00 AM EDT Office Visit [facility] [address] [facility] [place] [address] Veronica Moreland [address] [facility] [place] [address] 03/28/2025 11:00 AM EDT Office Visit [facility] [address] [facility] [place] [address] Veronica Moreland [address] [facility] [place] [address] documented as of this encounter Procedures Procedure Name Priority Date/Time Associated Diagnosis Comments IRON, TIBC AND FERRITIN PANEL Routine 10/14/2022 8:48 AM EDT Low mean corpuscular volume (MCV) documented in this encounter Results * (ABNORMAL) Iron, TIBC And Ferritin Panel (10/14/2022 8:48 AM EDT) Iron, Total 52 40 - 190 mcg/dL [facility] [place] [facility] Iron Binding Capacity 466(H) 250 - 450 mcg/dL (calc) Loaded [facility] [place] [facility] % Saturation 11(L) 16 - 45 % (calc) [facility] [place] [facility] Ferritin 13(L) 16 - 232 ng/mL [facility] [place] [facility] Blood Venous blood specimen / Unknown 10/14/2022 8:48 AM EDT 10/14/2022 8:49 AM EDT Narrative [facility] - 10/14/2022 9:24 PM EDT FASTING:NO FASTING: NO us Nikia Arzate [employer] LAB BLOOD ORDERABLES Final Resu lt [facility] [address], [place] [address] [facility] [place] [facility] [address] [place] [address] documented in this encounter Visit Diagnoses Diagnosis Low mean corpuscular volume (MCV)- Primary documented in this encounter Additional Health Concerns Assessment Noted Time PHQ-9 Depression Total Score: 0 04/28/20 23 8:58 AM EDT documented as of this encounter Care Teams Ultra Sound Technician Relationship Specialty Start Date End Date Nikia Arzate FNP [address] [place] [address] PCP - General Family Medicine 10/08/22 02/09/24 Fatoumata Resendiz FNP [address] [place] [address] PCP - General Family Medicine 02/10/24 documented as of this encounter
--- OUTSIDE RECORDS SUMMARY | 2025-02-24 12:23 | XMS_ITS | Clinical Summary ---
Author Organization [employer] Address [address] [facility] [address] [place] [address] Care Team Providers Care Night Worker Name Role Phone Fatoumata Resendiz ARCHITECTURAL MANAGER Primary Care Provider [phone] Allergies No known active allergies Medications * This document contains information received from the source organization and may not represent a complete record from that organization. Blood Pressure kitIndications:Ess ential hypertension 1 kit in the morning. 1 kit 3 Active Blood Pressure Monitoring (Omron 3 Series BP Monitor) device TEST BLOOD SUGAR IN THE MORNING 3 Active Spacer/Aero-Holdin g Chambers (OptiChamber Muna) misc 1 each every 4 (four) hours if needed (asthma). 1 each 4 Active ferrous gluconate (Fergon) 324 (38 Fe) MG tablet TAKE 1 TABLET BY MOUTH EVERY DAY WITH BREAKFAST 90 tablet 3 4 Active Ventolin HFA 108 (90 Base) MCG/ACT inhaler INHALE 2 PUFFS BY MOUTH EVERY 4 HOURS NEEDED FOR WHEEZING OR SHORTNESS OF BREATH 18 g 1 5 Active amLODIPine (Norvasc) 10 MG tabletIndications: Essential hypertension Take 1 tablet (10 mg) by mouth Once per day. 90 tablet 3 5 09/27/19 26 Active simvastatin (Zocor) 20 MG tabletIndications: Hyperlipidemia, unspecified hyperlipidemia type TAKE 1 TABLET BY MOUTH DAILY 90 tablet 3 5 Active olmesartan (Benicar) 5 MG tabletIndications: Essential hypertension Take 1 tablet (5 mg) by mouth Once per day. 30 tablet 11 10/19/19 Active metFORMIN XR (Glucophage-XR) 500 MG 24 hr tabletIndications: Pre-diabetes Take 1 tablet (500 mg) by mouth with evening meal. Do not crush, chew, or split. 30 tablet 11 12/14/19 26 Active Active Problems Problem Noted Date Diagnosed Date Dental calculus 11/11/2024 Gingival bleeding 11/11/2024 Periodontal disease 11/11/2024 Missing teeth, acquired 11/11/2024 Mild depression 08/18/2024 Iron deficiency 10/23/2022 Pre-diabetes 10/23/2022 Essential hypertension 06/19/2022 Hyperlipidemia 06/19/2022 Hearing loss of right ear 06/19/2022 Resolved Problems Problem Noted Date Diagnosed Date Resolved Date Tipped teeth 05/23/2023 10/18/2024 Dental calculus 05/23/2023 10/18/2024 Gingival bleeding 05/23/2023 10/18/2024 Encounters Date Type Department Care Team Description 02/18/[address] [facility] [address] [place] [address] Veronica Moreland 01/13/2025 10:00 AM EDT Clinical Support [facility] [address] [place] [phone] [place] Palacios RN Encounter for immunization 01/13/2025 Travel 12/13/2024 9:00 AM EDT Office Visit [facility] [address] [place] [address] Fatoumata Resendiz FNP Persistent proteinuria (Primary Dx); Pre-diabetes; Essential hypertension; Encounter for immunization 12/13/2024 Travel 12/09/[address] [facility] [address] [place] [address] Fatoumata Resendiz FNP chart prep 12/02/2024 Telephone [facility] [address] [place] [address] Fatoumata Resendiz FNP message from pcp from Last 3 Months Immunizations Immunization Administration Dates Next Due Hep B, adult 01/13/2025 HepB-CpG 12/13/2024 Influenza injectable quadrivalent preservative f ree 06/19/2022 Influenza, seasonal, injectable, preservative fr ee 03/17/2024 Pfizer Covid-19 Vaccine 12+ 04/19/2024 Pneumococcal Conjugate PCV 20 10/18/2024 Tdap 09/15/2023 Family History Medical History Relation Name Comments Alzheimer's disease Father Cancer Mother Relation Name Status Comments Father Mother Social History Tobacco Use Types Packs/Day Years Used Date Smoking Tobacco: Never Passive Smoke Exposure: Never Smokeless Tobacco: Never Tobacco Cessation:Counseling Given: Not Answered Alcohol Use Standard Drinks/Week Comments Never 0 (1 standard drink = 0.6 oz pur e alcohol) Depression Answer Date Recorded Patient Health Questionnaire-9 Score 0 12/13/2024 Patient Health Questionnaire-9 Score 0 12/13/2024 Last PHQ-9: Questionnaire Data Not on file 0 12/13/2024 Housing Stability Answer Date Recorded What is [...] Date Recorded Patient Health Questionnaire-2 Score 0 12/13/2024 Internet Access Answer Date Recorded Internet Access Q1 Yes 04/19/2024 Internet Access Q2 Not on file 04/19/2024 Comments No Sex and Gender Information Value Date Recorded Sex Assigned at Female 06/19/2022 11:56 AM EST Legal Sex Female 11:55 AM EST Gender Identity Female 06/19/2022 11:56 AM EST Sexual Orientation Straight 06/19/2022 11 :59 AM EST Last Filed Vital Signs Vital Sign Reading Time Taken Comments Blood Pressure 136/82 12/13/2024 9:06 AM EDT Pulse 78 12/13/2024 9:06 AM EDT Temperature 36.6 C (97.9 F) 12/13/2024 9:06 AM EDT Respiratory Rate 18 12/13/2024 9:06 AM EDT Oxygen Saturation 100% 10/18/2024 8:50 AM EDT Inhaled Oxygen Concentration - - Weight 78.3 kg (172 lb 9.6 oz) 12/13/2024 9:06 A M EDT Height 144.8 cm (4' 9 ) 12/13/2024 9:06 AM EDT Body Mass Index 37.35 12/13/2024 9:06 AM EDT Plan of Treatment Upcoming Encounters Date Type Department Care Team (Late st Contact Info) Description 03/21/2025 11:00 AM EDT Office Visit [facility] [address] [place] [address] [facility] [address] [place] [address] 03/28/2025 11:00 AM EDT Office Visit [facility] [address] [place] [address] [facility] [address] [place] [address] Health Maintenance Due Date Last Done Comments CT Colonography 1975 Colonoscopy 1975 Colorectal Cancer Screening 1975 FIT DNA/Cologuard 1975 FIT 1975 FOBT 1975 HIV Screening 1975 Sigmoidoscopy 1975 Family Planning (PISQ) 1989 Zoster Vaccines (1 of 2) 01/07/2024 Dental X-Ray: Bitewings 05/24/2024 05/23/20 23 (Patient Refused) Influenza Vaccine (#1) 2025 03/17/2024, 2022 SDOH Screening 04/19/2025 04/19/2024 Dental Oral Exam 05/13/2025 11/10/2024, , 07/09/2022 Dental Prophylaxis 05/13/2025 11/10/2024, 0 12/18/2023, 05/23/2023 Mammogram 05/14/2025 05/14/2023 Diabetes: Hemoglobin A1C 05/26/2025 025, 11/02/2024, 04/19/2024, Additional history exists Hepatitis B Vaccines (3 of 3 - 19+ 3-dose series) 06/15/2025 01/13/2025, 12/13/2024 Disability Screening 10/18/2025 10/18/2024 Alcohol/Substance Use Screening 12/13/2025 12/13/2024 Depression Screening 12/13/2025 12/13/2024, 12/14/19 Tobacco Screening 12/13/2025 12/13/2024 Dental X-Ray: Full Mouth 11/12/2027 11/10/2024, 06/11 Cervical Cancer Screening 10/12/2028 HPV/Cotest 10/12/2028 10/13/2023 Pap Smear 10/12/2028 10/13/2023 Lipid Panel 04/20/2029 04/20/2024, 03/10, 10/04/2022 DTaP/Tdap/Td Vaccines (2 - Td or Tdap) 09/14/2033 09/15/2023 RSV Patients and Patients Aged 60 years or older (1 - 1-dose 75+ series) 2049 Hepatitis C Screening Completed 09/15/2023 COVID-19 Vaccine Completed 04/19/2024 Pneumococcal Vaccine: 50+ Years Completed 10/18/2024 HIB Vaccines Aged Out No longer eligi ble based on patient's age to complete this topic HPV Vaccines Aged Out No longer eligi ble based on patient's age to complete this topic Hepatitis A Vaccines Aged Out No long er eligible based on patient's age to complete this topic IPV Vaccines Aged Out No longer eligi ble based on patient's age to complete this topic Meningococcal B Vaccine Aged Out No l onger eligible based on patient's age to complete this topic Meningococcal Vaccine Aged Out No stacie berenice eligible based on patient's age to complete this topic RSV under 20 months Aged Out No longe r eligible based on patient's age to complete this topic Rotavirus Vaccines Aged Out No longer eligible based on patient's age to complete this topic Procedures Procedure Name Priority Date/Time Associated Diagnosis Comments COMPREHENSIVE METABOLIC PANEL Routine 02/24/2025 10:44 AM EDT Elevated alkaline phosphatase level SLIDE REVIEW Routine 02/24/2025 10:44 AM EDT Elevated alkaline phosphatase level CBC WITH AUTO DIFFERENTIAL Routine 02/24/2025 10:44 AM EDT Elevated alkaline phosphatase level HEMOGLOBIN A1C Routine 02/24/2025 10:44 AM EDT Elevated alkaline phosphatase level URINALYSIS, COMPLETE Routine 02/24/2025 10:32 AM EDT Elevated alkaline phosphatase level US ABDOMEN COMPLETE Routine 01/22/2025 9 :06 AM EDT Elevated serum alkaline phosphatase level POCT GLUCOSE Routine 12/13/2024 9:08 AM EDT Pre-diabetes SED RATE BY MODIFIED WESTERGREN Routine 12/03/2024 8:48 AM EDT Elevated serum protein level CBC WITH AUTO DIFFERENTIAL Routine 12/03/2024 8:48 AM EDT Elevated serum protein level ALBUMIN, RANDOM URINE W/CREATININE Routine 12/03/2024 8:48 AM EDT Elevated serum protein level URINALYSIS, COMPLETE Routine 12/03/2024 8:48 AM EDT Elevated serum protein level PROTEIN, TOTAL AND PROTEIN ELECTROPHORESIS Routine 12/03/2024 8:48 AM EDT Elevated serum protein level PROPHYLAXIS - ADULT Routine 11/10/2024 1 :00 PM EDT Dental calculus Gingival bleeding Periodontal disease PANORAMIC RADIOGRAPHIC IMAGE Routine 11/10/2024 1:00 PM EDT PERIODIC ORAL EVALUATION - ESTABLISHED PATIENT Routine 11/10/2024 1:00 PM EDT LIPID PANEL, STANDARD Routine 04/20/2024 10:35 AM EST Pre-diabetes HPV MRNA E6/E7 REFLEX TO HPV 16, 18/45 Routine 10/13/2023 11:13 AM EDT PAP SMEAR Routine 10/13/2023 11:13 AM EDT Cervical cancer screening HEPATITIS C AB W/REFL TO HCV RNA, QN, PCR Routine 09/15/2023 10:56 AM EDT Routine general medical examination at a health care facility BI MAMMOGRAM SCREENING TOMOSYNTHESIS BILATERAL Routine 05/14/2023 9:25 AM EST from Last 3 Months or Most Recently Relevant to Health Maintenance Results * Slide Review (02/24/2025 10:44 AM EDT) Slide Review VERIFIED [facility] 02/24/2025 10:4 4 AM EDT 02/24/2025 10:44 AM EDT us Generic External Data Provider LAB BLOOD ORDERAB LES Final Result [facility] [address] [place] [address] [phone] * (ABNORMAL) CBC auto differential (02/24/2025 10:44 AM EDT) Only the most recent of2 resultswithin the time period is included. White Blood Count 8.4 4.8 - 10.8 X10*3/uL [facility] Red Blood Count 5.01 4.20 - 5.50 X10*6/uL [facility] Hemoglobin 12.0 12.0 - 16.0 g/dl [facility] Hematocrit 39.7 37.0 - 47.0 % [facility] Mean Corpuscular Volume 79.2(L) 80.0 - 98.0 fL [facility] Mean Corpuscular Hemoglobin 24.0(L) 27.0 - 33.0 pg [facility] Mean Corpuscular HGB Conc 30.2(L) 31.0 - 35.0 g/dl [facility] Red Cell Distribution Width 16.0 11.0 - 16.0 % [facility] Platelet Count 290 160 - 400 X10*3/uL [facility] Mean Platelet Volume 10.4 9.4 - 12.3 fL [facility] Neutrophils Percent Auto 54.3 45 - 73 % [facility] Imm Gran Pct Auto 0.2 0.0 - 0.4 % [facility] Lymphocytes Percent Auto 35.2 20 - 40 % [facility] Monocytes Percent Auto 8.1 2 - 11 % [facility] Eosinophils Percent Auto 1.7 0 - 4 % [facility] Basophils Percent Auto 0.5 0 - 2 % [facility] NRBC Pct Auto 0.0 0.0 - 0.2 /100WBC [facility] Neutrophils Absolute Auto 4.5 2.0 - 8.3 x10*3/uL [facility] Imm Gran Abs Auto 0.02 0.00 - 0.03 X10*3/uL [facility] Lymphocytes Absolute Auto 2.9 1.2 - 4.9 X10*3/uL [facility] Monocytes Absolute Auto 0.7 0.1 - 1.2 X10*3/uL [facility] Eosinophils Absolute Auto 0.1 0.0 - 0.4 X10*3/uL [facility] Basophils Absolute Auto 0.0 0.0 - 0.2 X10*3/uL [facility] NRBC Abs Auto 0.000 0.0 - 0.012 X10*3/uL [facility] 02/24/2025 10:4 4 AM EDT 02/24/2025 10:44 AM EDT us Generic External Data Provider LAB BLOOD ORDERAB LES Edited Result - Final [facility] [address] [place] [phone] * (ABNORMAL) Hemoglobin A1c (02/24/2025 10:44 AM EDT) Hemoglobin A1c 6.4(H) <6.0 % [facility] Comment:Hemoglobin A1C Refer ence Range Adults: 4.8 - 6.0 % Non diabetic: < 6.0 % Goal: < 7.0 %Additional Action Suggested: > 8.0 %Note: Hemoglobin A1c results are invalid for patients with abnormal amounts of HbF. Blood transfusions may impact the HbA1c concentration in the patient sample. Estimated Average Glucose 137 mg/dL [facility] Comment:eAG = Estimated ave rage glucose which is %A1C expressed asaverage glucose, using the formula of the P0U-GiqpmhbWwopqpz Glucose study (ADAG), Diabetes Care, Vol.31,#8,2007 02/24/2025 10:4 4 AM EDT 02/24/2025 10:44 AM EDT us Generic External Data Provider LAB BLOOD ORDERAB LES Final Result [facility] [address] [place] [phone] * (ABNORMAL) Comprehensive Metabolic Panel (02/24/2025 10:44 AM EDT) Pathologist [facility] Sodium 145 135 - 145 mmol/L [facility] Potassium 3.7 3.3 - 5.1 mmol/L [facility] Chloride 106 96 - 108 mmol/L [facility] Carbon Dioxide 28 22 - 29 mmol/L [facility] Anion Gap 15 12 - 20 [facility] Urea Nitrogen (BUN) 9 9 - 16 mg/dL [facility] Creatinine, Serum 0.74 0.5 - 1.4 mg/dL [facility] Estimated Glomerular Filt Rate >60 [facility] Comment:Chronic Kidney Disea se: Estimated GFR < 60 mL/min/1.96b2Vfeqya Kidney Disease: Estimated GFR < 15 mL/min/1.73m2 Glucose 85 60 - 115 mg/dL [facility] Calcium 10.3(H) 8.4 - 10.2 mg/dL [facility] Bilirubin, Total 0.2 0.0 - 1.0 mg/dL [facility] Aspartate Amino Transferase 22 5 - 31 U/L [facility] Alanine Aminotransferase 17 0 - 31 U/L [facility] Total Protein 8.4(H) 6.5 - 8.0 g/dL [facility] Albumin Level 4.7 3.5 - 5.0 g/dL [facility] Alkaline Phosphatase 127(H) 39 - 117 U/L [facility] 02/24/2025 10:4 4 AM EDT 02/24/2025 10:44 AM EDT us Generic External Data Provider LAB BLOOD ORDERAB LES Final Result [facility] [address] [place] [phone] * (ABNORMAL) Urinalysis Complete (02/24/2025 10:32 AM EDT) Only the most recent of2 resultswithin the time period is included. Color Urine Yellow [facility] Appearance Urine Clear [facility] PH 8.5 5.0 - 9.0 [facility] Glucose Urine UA Negative Negative mg/dL [facility] Urine Blood Trace(A) Negative [facility] Specific [employer] - Urine 1.010 1.005 - 1.025 [facility] Urine Protein 30 (1+)(A) Neg-Trace mg/dL [facility] Urine Ketones Negative Negative mg/dL [facility] Nitrite Urine Negative Negative [facility] Leukocyte Esterase Urine Negative Negative [facility] RBC Urine 6-10(A) 0 - 2 /HPF [facility] Urine WBC 0-5 0 - 5 /HPF [facility] Urine Squamous Epithelial Cell 3-5 0 - 2 /HPF [facility] Urine Bacteria 1+ None Seen [facility] Hyaline Casts, Urine 0-2 0 - 2 /LPF [facility] 02/24/2025 10:3 2 AM EDT 02/24/2025 11:06 AM EDT us Generic External Data Provider LAB URINE ORDERAB LES Final Result [facility] [address] [place] [phone] * US Abdomen Complete (01/22/2025 9:06 AM EDT) Anatomical Region Laterality Modality Abdomen Ultrasound 01/22/2025 9:06 AM EDT Narrative 01/22/2025 9:08 AM EDT [address] [address] Ultrasound Report Signed Patient: Shital Rogers MR#: [id number] : 1975 Acct:[id number] Age/Sex: 50 / F ADM Date: 01/21/25 Loc: HO.US Attending Dr: Fatoumata PIMENTEL Ordering Physician: Fatoumata Resendiz Date of Service: 01/21/25 Procedure(s): US abdomen complete Accession Number(s): [id number] cc: Nikia Arzate SOLID WASTE ENGINEER; Fatoumata Resendiz CLINICAL HISTORY: 49 y.o F with persistent alkphos elevation. R p hepatobiliary dysfunction US abdomen complete with duplex and color Doppler Comparison: None Findings: The visualized pancreas, aorta, and inferior vena cava are unremarkable. Liver normal size and mildly echogenic throughout. Right lobe 14.2 cm length. No focal hepatic masses. Common duct 3.0 mm diameter. Physiologic distention of the gallbladder. No gallstones. Probable gallbladder sludge. No gallbladder wall thickening. No pericholecystic fluid. No sonographic Marie sign. Main portal vein antegrade. Right kidney normal size, 10.7 cm in length. Normal cortical width and echotexture. No solid or cystic renal masses. Nonobstructing caliceal stones midpole measuring 14 and 13 mm. No hydronephrosis. Left kidney normal, 10.0 cm in length. Normal cortical width and echotexture. No solid or cystic renal masses. Spleen measures 6.4 cm. No splenic masses. No ascites. No lymphadenopathy. Impression: 1. Echogenic liver reflecting mild diffuse hepatic steatosis or diffuse hepatocellular disease. No focal hepatic lesions. 2. Probable gallbladder sludge no gallstones or evidence of cholelithiasis. 3. Nephrolithiasis on the right without evidence of obstructive uropathy. Correlate with CT of the abdomen and pelvis. This document has been electronically signed by: Flaquito Abdi MD on 01/22/2025 09:06:12 Dictated By: Flaquito Abdi MD Signed By: <Electronically signed by Flaquito Abdi MD in OV> 01/22/25906 DD/ 5 TD/TT: 01/22/25905 Inspector Watch Assembly: Procedure Note Donotuseinterpreter, Image - 01/22/[address] [address] Ultrasound Report Signed Patient: Shital Rogers WMR#: [id number] : 1975Acct:[id number] Age/Sex: 50 / FADM Date: 01/21/25 Loc: HO.US Attending Dr: Fatoumata MANP Ordering Physician: Fatoumata Resendiz Date of Service: 01/21/25 Procedure(s): US abdomen complete Accession Number(s): [id number] cc: Nikia Arzate SOLID WASTE ENGINEER; [facility] CLINICAL HISTORY: 49 y.o F with persistent alkphos elevation. R phepatobiliary dysfunction US abdomen complete with duplex and color Doppler Comparison: None Findings: The visualized pancreas, aorta, and inferior vena cava are unremarkable. Liver normal size and mildly echogenic throughout. Right lobe 14.2 cm length. No focal hepatic masses. Common duct 3.0 mm diameter. Physiologic distention of the gallbladder. No gallstones. Probable gallbladder sludge. No gallbladder wall thickening. No pericholecystic fluid. No sonographic Marie sign. Main portal vein antegrade. Right kidney normal size, 10.7 cm in length. Normal cortical width and echotexture. No solid or cystic renal masses. Nonobstructing caliceal stones midpole measuring 14 and 13 mm. No hydronephrosis. Left kidney normal, 10.0 cm in length. Normal cortical width and echotexture. No solid or cystic renal masses. Spleen measures 6.4 cm. No splenic masses. No ascites. No lymphadenopathy. Impression: 1. Echogenic liver reflecting mild diffuse hepatic steatosis or diffuse hepatocellular disease. No focal hepatic lesions. 2. Probable gallbladder sludge no gallstones or evidence of cholelithiasis. 3. Nephrolithiasis on the right without evidence of obstructive uropathy. Correlate with CT of the abdomen and pelvis. This document has been electronically signed by: Flaquito Abdi MD on 01/22/2025 09:06:12 Dictated By: Flaquito Abdi MD Signed By: <Electronically signed by Flaquito Abdi MD in OV> 01/22/25906 DD/ 5 TD/TT: 01/22/25905 Inspector Watch Assembly: [facility] IMG US PROCEDURES Final Resul t * POCT Glucose (12/13/2024 9:08 AM EDT) Glucose Blood, POC 92 60 - 200 mg/dL QC Media Lot # [id number] Lot# Expiration Date 908 Blood Capillary blood specimen / Unknown 12/13/2024 9:08 AM EDT Result [facility] POINT OF CARE TEST ENTER/EDIT ORDERABLES Final Result * (ABNORMAL) Albumin, Random Urine W/Creatinine (12/03/2024 8:48 AM EDT) Creatinine, Urine 40.16 mg/dL [facility] Microalbumin Urine 214.0 mg/L H [facility] Microalbum Creatinine Ratio Ur 532.8(H) <30 ug/mg cr [facility] Comment:Albumin/Creatinine R atio Reference Ranges: Normal: < 30 ug/mg creatinine Microalbuminuria: 30 - 300 ug/mg creatinineClinical Albuminuria: > 300 ug/mg creatinine Urine 12/03/2024 8:48 AM EDT 12/03/2024 10:54 AM EDT [facility] LAB URINE ORDERABLES Final Re sult Performing Organization Address [facility] Co de Phone Number [facility] [address] [place] [phone] * (ABNORMAL) Sed Rate by Modified Westergren (12/03/2024 8:48 AM EDT) [facility] Erythrocyte Sedimentation Rate 44(H) 0 - 20 MM/HR [facility] Comment:Patients with polycy themia and many hemoglobin abnormalitiesmay have depressed sed rates whereas patients with anemiamay have elevated sed rates. Blood Venous blood specimen / Unknown 12/03/2024 8:48 AM EDT 12/03/2024 11:17 AM EDT [facility] LAB BLOOD ORDERABLES Final Re sult Performing Organization Address [facility] Co de Phone Number [facility] [address] [place] [phone] * (ABNORMAL) Protein, Total and Protein??Electrophoresis (12/03/2024 8:48 AM EDT) [facility] Prot Elec - Total Protein 7.3 6.1 - 8.1 g/dL [facility] Prot Elec - Albumin 3.9 3.8 - 4.8 g/dL [facility] Prot Elec - Alpha1 0.3 0.2 - 0.3 g/dL [facility] Prot Elec - Alpha2 1.0(A) 0.5 - 0.9 g/dL [facility] Prot Elec - Beta 1 0.5 0.4 - 0.6 g/dL [facility] Prot Elec - Beta 2 0.5 0.2 - 0.5 g/dL [facility] Prot Elec - Gamma 1.1 0.8 - 1.7 g/dL [facility] PES - Abn Protein Band 1 [facility] PES-Abn Protein Band 2 [facility] PES-Abn Protein Band 3 TNP [facility] Prot Elec - Interpretation SEE NOTE [facility] Comment:Isolated elevation o f alpha-2 globulins. Suggestive ofacute inflammation.THIS TEST WAS PERFORMED AT:[facility] [place] [phone] IRWIN MD Blood Venous blood specimen / Unknown 12/03/2024 8:48 AM EDT 12/03/2024 11:17 AM EDT [facility] LAB BLOOD ORDERABLES Final Re sult [facility] [address] [place] [phone] * (ABNORMAL) Lipid Panel, Standard (04/20/2024 10:35 AM EST) Triglycerides 128 <150 mg/dL [facility] Comment:Desirable Triglyceri de: less than 150 mg/dLBorderline High Triglyceride 150-199 mg/dLHigh Triglyceride: 200-499 mg/dLVery High Triglyceride: greater than or equal to 5OO mg/dL Cholesterol 188 <200 mg/dL [facility] Comment:Desirable Cholestero l: less than 200 mg/dLBorderline High Cholesterol: 200-239 mg/dLHigh Cholesterol: greater than 239 mg/dL LDL Cholesterol Calculated 106(H) <100 mg/dL [facility] Comment:Desirable LDL: less than 100 mg/dLNear Optimal/Above Optimal LDL: 110- 129 mg/dLBorderline High LDL: 130-159 mg/dLHigh LDL: 160-189 mg/dLVery High LDL: greater than or equal to 190 mg/dL HDL Cholesterol 57 >40 mg/dL [facility] Comment:Desirable HDL: great er than 40 mg/dL Note: This HDL assay may give artificially low results in patients with liver disease. Blood Venous blood specimen / Unknown 04/20/2024 10:35 AM EST 04/20/2024 11:32 AM EST [facility] LAB BLOOD ORDERABLES Final Re sult Performing Organization Address [facility]/ZIP Co de Phone Number [facility] [address] [place] [address] [phone] * HPV mRNA E6/E7 w/Reflex to HPV Genotypes 16, 18/45 (10/13/2023 11:13 AM EDT) HPV nRNA E6/E7 Not Detected Not Detected [facility] Comment:Methodology: Transcr iption-Mediated AmplificationThis assay detects E6/E7 viral messenger RNA (mRNA) from 14high-risk HPV types (16,18,31,33,35,39,45,51,52,56,58,59,66,68).Cervical sources are required for HPV testing.If a vaginal source from a patient who has had atotal hysterectomy with removal of cervix wassubmitted, please contact the testing laboratoryfor alternative testing options.For additional information, please refer [email or web address]/faq/DND787s1(This link if provided for information/educational purposes only.)THIS TEST WAS PERFORMED AT:[facility] [place] [phone] IRWIN MD HPV mRNA E6/E7 [facility] HPV 16 RNA [facility] HPV 18/45 RNA [facility] 10/13/2023 11:1 3 AM EDT 10/15/2023 8:20 AM EDT Luis Carlos [facility] CYTOLOGY ORDERABLES F inal Result Performing Organization Address [facility]/ZIP Co de Phone Number [facility] [address] [place] [address] [phone] * Pap Smear (10/13/2023 11:13 AM EDT) Swab Cervix uteri structure / Unknown 10/13/2023 11:13 AM EDT 10/15/2023 8:20 AM EDT [facility] - 11/01/2023 5:44 PM EDT ----- ------- Name: Allilincoln Vinh Penaga Mann Age/Sex: 48/F : 1975 Unit#: [id number] Attend Dr: LUIS CARLOS NASH CNM Re10/13/23 Status: DEP REF Location: [facility] Disch: ----- ------- SPEC : [id number] RECD: 10/15/23-819 STATUS: ANNA GILBERT NUM: [id number] [place]: 10/13/23-[address] [facility] [address]: LUIS CARLOS NASH CNM ENTERED: 10/15/23-1051 SP TYPE: Pap Smr OT DR: ORDERED: Pap Smear Interpretation Satisfactory for evaluation. Negative for intraepithelial lesion or malignancy. HPV mRNA E6/E7: NOT DETECTED This assay detects E6/E7 viral messenger RNA (mRNA) from 14 high-risk HPV types (16, 18, 31, 33, 35, 39, 45, 51, 52, 56, 58, 59, 66, 68) HPV testing performed by [facility] [employer], [place], [place]. See reference laboratory portion of the EMR for entire report. Clinical Information LMP: Postmenopausal Previous PAP test: Unknown date, WNL Material Received ThinPrep-Cervical ----- ------- Signed (signature on file) Sakshi Montalvo 11/01/23 1744 ----- ------- END OF REPORT Luis Carlos Nash [facility] CYTOLOGY ORDERABLES F inal Result Performing Organization Address [facility] Co de Phone Number [facility] [address] [place] [address] [phone] * Hepatitis C Antibody with Reflex to HCV, RNA, Quantitative, Real-Time PCR (09/15/2023 10:56 AM EDT) Hepatitis C Antibody Nonreactive Nonreactive [facility] Comment:Antibodies to HCV no t detected; does not exclude early acuteHCV infection. Blood Venous blood specimen / Unknown 09/15/2023 10:56 AM EDT 09/15/2023 11:31 AM EDT Nikia Arzate [facility] BLOOD ORDERABLES Final Resu lt Performing Organization Address [facility] de Phone Number [facility] [address] [place] [address] [phone] * BI Mammogram Screening Tomosynthesis Bilateral (05/14/2023 9:25 AM EST) Anatomical Region Laterality Modality Breast Bilateral Mammography 05/14/2023 9:25 AM EST Narrative 06/04/2023 3:24 AM EST [address] [place] [address] Mammography Report Signed Patient: Shital Rogers MR#: [id number] : 1975 Acct:[id number] Age/Sex: 48 / F ADM Date: 05/14/23 Loc: HO.MAMMO Attending Dr: Nikia Arzate NP Ordering Physician: Nikia Arzate NP Results: 2Benign Findings Date of Service: 05/14/23 Follow Up: 1 Year From Orig ina Mammogram Procedure(s): MM tomosynthesis screening BI Accession Number(s): [id number] cc: Nikia Arzate NP EXAMINATION: MM SCREENING DIGITAL BREAST TOMOSYNTHESIS, BILATERAL CLINICAL INFORMATION: Asymptomatic patient. Screening. COMPARISON: Mammography: This is a baseline study. TECHNIQUE: Digital breast tomosynthesis is performed in both the craniocaudal and mediolateral oblique views along with computer-aided detection (CAD). Synthesized 2D images are generated from the tomosynthesis. FINDINGS: There are scattered areas of fibroglandular density (ACR BI-RADS breast composition Category b). There are no significant masses, abnormal calcifications, or other abnormalities. There is a coarsely calcifying mass in the upper-outer quadrant of the left breast. This is wireless sales representative of a benign, involuting fibroadenoma. MM/MM tomosynthesis screening BI IMPRESSION: No mammographic evidence of malignancy. ASSESSMENT: BI-RADS BI-RADS 2 - Benign Findings RECOMMENDATION: Routine annual mammography screening. 1 year F/U This examination should not preclude the clinical evaluation of a suspicious palpable abnormality. This patient's information was entered into a reminder system with a target due date for their next mammogram. Dictated By: Jennifer Gray MD Signed By: <Electronically signed by Jennifer Gray MD in OV> 06/04/23319 DD/ 4 TD/TT: Inspector Watch Assembly: Procedure Note Donotuseinterpreter, Image - 06/04/[address] [place] [address] Mammography Report Signed Patient: Shital Rogers WMR#: [id number] : 1975Acct:[id number] Age/Sex: 48 / FADM Date: 05/14/23 Loc: HO.MAMMO Attending Dr: Nikia Arzate SOLID WASTE ENGINEER Ordering Physician: Nikia Arzate NPResults: 2Benign Findings Date of Service: 05/14/23Follow Up: 1 Year From Orig ina Mammogram Procedure(s): MM tomosynthesis screening BI Accession Number(s): [id number] cc: Nikia Arzate NP EXAMINATION: MM SCREENING DIGITAL BREAST TOMOSYNTHESIS, BILATERAL CLINICAL INFORMATION: Asymptomatic patient. Screening. COMPARISON: Mammography: This is a baseline study. TECHNIQUE: Digital breast tomosynthesis is performed in both the craniocaudal and mediolateral oblique views along with computer-aided detection (CAD). Synthesized 2D images are generated from the tomosynthesis. FINDINGS: There are scattered areas of fibroglandular density (ACR BI-RADS breast composition Category b). There are no significant masses, abnormal calcifications, or other abnormalities. There is a coarsely calcifying mass in the upper-outer quadrant of the left breast. This is wireless sales representative of a benign, involuting fibroadenoma. MM/MM tomosynthesis screening BI IMPRESSION: No mammographic evidence of malignancy. ASSESSMENT: BI-RADS BI-RADS 2 - Benign Findings RECOMMENDATION: Routine annual mammography screening. 1 year F/U This examination should not preclude the clinical evaluation of a suspicious palpable abnormality. This patient's information was entered into a reminder system with a target due date for their next mammogram. Dictated By: Jennifer Gray MD Signed By: <Electronically signed by Jennifer Gray MD in OV> 06/04/23 0320 DD/ 0925 TD/TT: Inspector Watch Assembly: Nikia Arzate ARCHITECTURAL MANAGER IM BI PROCEDURES Edited Result - Final from Last 3 Months or Most Recently Relevant to Health Maintenance [place] [facility] MEDICAID STAND ADULT * Guarantor: Shital Rogers Account Type Relation to Patient Date of Phone Billing Address Personal/Family Self [address] Care Teams Night Worker Relationship Specialty Start Date End Date Fatoumata Resendiz FNP [address] [place] [phone] PCP - General Family Medicine 02/10/24
--- OUTSIDE RECORDS SUMMARY | 2025-02-24 12:23 | XMS_ITS | Encounter Summary ---
Author Organization [employer] Address [address] [place] [address] [address] [place] [address] Care Team Providers Care Clerk Stenographer Name Role Phone Huey Nikia [facility] Primary Care Provider [phone] Fatoumata Resendiz [facility] Primary Care Provider [phone] Encounter Details Date Type Department Care Team ([facility] Contact Info) Description 08/09/2022 Abstract [facility] [address] [place] [phone] Bakari Martell DDS [address] [place] [address] Social History Tobacco Use Types Packs/Day Years Used Date Smoking Tobacco: Never Passive Smoke Exposure: Never Smokeless Tobacco: Never Alcohol Use Standard Drinks/Week Comments Never 0 (1 standard drink = 0.6 oz pur e alcohol) Comments Unknown Sex and Gender Information Value [...] suspected to have Coronavirus/COVID-19? No / Unsure 08/12/2022 8:54 AM EST documented as of this encounter Plan of Treatment Upcoming Encounters Date Type Department Care Team ([facility] Contact Info) Description 03/21/2025 11:00 AM EDT Office Visit [facility] [address] [place], [place] [phone] [facility] [place] [place] [address] 03/28/2025 11:00 AM EDT Office Visit [facility] [address] [facility] [place] [phone] Veronica [place] [address] [facility], [place] [address] documented as of this encounter Visit Diagnoses Not on filedocumented in this encounter Care Teams Clerk Stenographer Relationship Specialty Start Date End Date Nikia Arzate FNP [address] [facility] [place] [address] PCP - General Family Medicine 10/08/22 02/09/24 [place] F[place] [address] [facility] [place] [address] PCP - General Family Medicine 02/10/24 documented as of this encounter
[2025-02-25 10:44] LABS: Anti Nuclear Antibody Screen NEGATIVE (NEGATIVE)
[2025-02-25 21:14] LABS: Anti Glomerular Basement Memb <1.0 AI; Proteinase 3 PR3 Antibodies <1.0 AI
[2025-03-02 07:43] LABS: Neutrophil Cyto Ab Screen NEGATIVE (NEGATIVE)
== END 2025-02-24 09:58 | disposition home or self-care (01) ==
LOC: HO.LAB 09:57
PROVIDERS: PCP Nurse Practitioner Family; Visit Provider Internal Medicine Hypertension Specialist
DX: R80.9 Proteinuria, unspecified (principal); R31.29 Other microscopic hematuria; N20.0 Calculus of kidney; I10 Essential (primary) hypertension; Z01.84 Encounter for antibody response examination; Z79.899 Other long term (current) drug therapy
CPT/HCPCS: 36415; 80053; 81001; 82570; 82784; 83036; 83520; 84156; 85025; 86021; 86036; 86038; 86160; 86334; 99212

== ENCOUNTER 2025-05-23 11:02 | Outpatient (AMB) | payer MEDICAID, SELFPAY ==
--- NOTE | 2025-05-23 11:06 | HO.NEPHOV ---
Vital Signs 05/23/25 11:07 Height 4 ft 9 in Weight 172 lb BMI 37.2 BP 132/70 Blood Pressure Location Lt brachial Position Sitting Pulse 84 Pulse Source Pulse Oximeter Pulse Oximetry (%) 98 Oxygen Delivery Method Room Air Intake Visit Reasons: 3mon f/u Reproductive Healthcare Assistant Required: No Reproductive Healthcare Assistant Services: Reproductive Healthcare Assistant Offered & Declined (Sister in law will translate ) Accompanied by: Sister in law Allergies No Known Allergies Allergy (Verified 05/23/25 11:08) Medication List - Last Reconciled 05/23/25 by Jose Miguel Cartwright MD amlodipine 10 mg PO DAILY ferrous gluconate 324 mg PO DAILY metformin ER 500 mg PO QPM olmesartan 5 mg PO DAILY simvastatin 20 mg PO DAILY HPI Comments Details: History of Present Illness The patient is a 50 year old female presenting for a follow-up visit for management of diabetes with proteinuria and microscopic hematuria. Her renal function is normal, but she has persistent proteinuria, with a hkcivda-uy-ffvrlqwhgp ratio of 0.85, which is considered a sign of kidney stress secondary to diabetes and excess weight. The patient's recent HbA1c was 6.4, but she does not monitor her blood glucose levels at home as she does not have a glucometer. Her blood pressure is well-controlled on olmesartan. Previous serology and other blood tests were normal, and a CT scan in January was also normal. Results - Labs: - HbA1c: 6.4. - Serology: Normal. - Urine udscuvt-va-lrvvptwnmi ratio: 0.85. - Renal function: Normal. - Imaging: - Abdominal CT scan (January): Normal. [facility] Medical History Periodontal disease Gingival bleeding Dental calculus Mild depression Iron deficiency Hearing loss in right ear Hyperlipidemia Essential hypertension Surgical History H/O tubal ligation Previous section Family History Mother Cancer Father Alzheimer disease Physical Exam Exam Exam: Physical Exam General: Awake. Comfortable. HENT: Neck supple. Mucosa moist. Pulmonary: Lungs aeration equal. No rales. Cardiology: Heart S1-S2 heard. No gallop. Abdomen: Soft. Non tender. Bowel sounds normal. Neurologic: No involuntary movements. No myoclonus. Extremities: No edema. No rash. Vital Signs: Last Vital Signs Pulse 84 05/23/25 11:07 BP 132/70 05/23/25 11:07 Pulse Ox 98 05/23/25 11:07 Oxygen Delivery Method Room Air 05/23/25 11:07 BMI result Body Mass Index 37.2 Results Reviewed Results Reviewed: Jan 2025 CT Scan Right kidney normal size, 10.7 cm in length. Normal cortical width and echotexture. No solid or cystic renal masses. Nonobstructing caliceal stones midpole measuring 14 and 13 mm. No hydronephrosis. Left kidney normal, 10.0 cm in length. Normal cortical width and echotexture. No solid or cystic renal masses Nephrology Results: Hgb, (12.0-16.0) 12.0 g/dl 02/24/25 WBC, (4.8-10.8) 8.4 X10*3/uL 02/24/25 Plt Count, (160-400) 290 X10*3/uL 02/24/25 Sodium, (135-145) 145 mmol/L 02/24/25 Potassium, (3.3-5.1) 3.7 mmol/L 02/24/25 Chloride, (96-108) 106 mmol/L 02/24/25 Carbon Dioxide, (22-29) 28 mmol/L 02/24/25 BUN, (9-16) 9 mg/dL 02/24/25 Creatinine, (0.5-1.4) 0.74 mg/dL 02/24/25 Calcium, (8.4-10.2) 10.3 mg/dL H 02/24/25 Urine Protein, (Neg-Trace) 30 (1+) mg/dL H 02/24/25 Urine Creatinine 49.33 mg/dL 02/24/25 Assessment & Plan Assessment & Plan (1) Hematuria: Code(s): R31.9 - Hematuria, unspecified Category: Medical (2) Proteinuria: Code(s): R80.9 - Proteinuria, unspecified Category: Medical Plan Plan 1. Diabetes Mellitus With Proteinuria - The patient's proteinuria is a sign of kidney stress, likely resulting from diabetes and excess weight, although renal function remains normal. - Blood pressure is well-controlled. - The plan is to continue the current regimen with no changes. - Continue olmesartan for blood pressure control and renal protection. - The patient was advised to increase water intake and avoid sugary drinks like soda and juice. - Weight loss was recommended to help reduce stress on the kidneys. - Schedule a follow-up in 6 months to re-evaluate kidney function and proteinuria. Orders: Orders Creatinine Urine 6 Months R31.9 - Hematuria, unspecified, R80.9 - Proteinuria, unspecified Total Protein Urine Random 6 Months R31.9 - Hematuria, unspecified, R80.9 - Proteinuria, unspecified UA and rflx microscopic 6 Months R31.9 - Hematuria, unspecified, R80.9 - Proteinuria, unspecified Basic Metabolic Panel 6 Months R31.9 - Hematuria, unspecified, R80.9 - Proteinuria, unspecified Coding Level of Care Code Est Pt Level 4 (38266) Diagnoses Hematuria R31.9 Proteinuria R80.9
[2025-05-23 11:07] VITALS: BP 132/70; PULSE 84; O2SAT 98; BMI 37.2
== END 2025-05-23 11:18 | disposition home or self-care (01) ==
LOC: HO.HKA 11:03
PROVIDERS: PCP Nurse Practitioner Family; Visit Provider Internal Medicine Hypertension Specialist
DX: R31.9 Hematuria, unspecified (principal); R80.9 Proteinuria, unspecified
CPT/HCPCS: 99214

== ENCOUNTER → 2025-05-23 11:02 | Outpatient (BNVA) | payer MEDICAID, SELFPAY | PROVIDERS: PCP Nurse Practitioner Family; Visit Provider Internal Medicine Hypertension Specialist | DX: E11.29 Type 2 diabetes mellitus with other diabetic kidney complication (principal); R80.9 Proteinuria, unspecified; R31.9 Hematuria, unspecified; Z79.899 Other long term (current) drug therapy | CPT/HCPCS: 99212 ==